=== PATIENT | female | born 1965 | race Caucasian/White ===

== ENCOUNTER → 2017-12-14 13:38 | Outpatient (CLI) | payer OTHER, SELFPAY ==
--- NOTE | 2017-12-14 13:41 | RAD_ITS ---
STUDY: X-RAY CHEST REASON FOR EXAM: Female, 52 years old. Chest pain TECHNIQUE: Frontal and lateral views of the chest COMPARISON: None. FINDINGS: The lungs are clear. There are no pleural effusions. There is no pneumothorax. The heart is normal in size. The visualized osseous structures are within normal limits. RAD/Chest PA and Lateral IMPRESSION: No acute thoracic pathology. Electronically Signed: Juan Nettles, at 16:49 EDT Tel , Service support ,
--- NOTE | 2017-12-14 13:41 | RAD_ITS ---
STUDY: X-RAY - ABDOMEN/PELVIS REASON FOR EXAM: Female, 52 years old. Left-sided kidney stones TECHNIQUE: Two AP supine views of the abdomen and pelvis. COMPARISON: 02/02/2017 FINDINGS: There is an unremarkable bowel gas pattern. There is no demonstrated free abdominal air. The visualized liver, spleen and kidneys are grossly normal in size and morphology. Since the prior study, the left ureteral stent has been removed. There are multiple phleboliths in the pelvis. No definite renal calculus. Normal visualized osseous structures. RAD/Abdomen Single View IMPRESSION: Normal x-ray examination of the abdomen and pelvis. Electronically Signed: Narendra Maynard DO at 14:27 EDT Tel , Service support ,
== END ==
PROVIDERS: Family Provider Family Medicine; PCP Family Medicine; Visit Provider Internal Medicine Cardiovascular Disease
DX: R07.89 Other chest pain (principal); N20.0 Calculus of kidney
CPT/HCPCS: 71046; 74018

== ENCOUNTER 2017-12-24 18:20 | Emergency (ER) | payer OTHER, SELFPAY ==
[2017-12-24 18:21] VITALS: BP 155/65; PULSE 117; RESP 20; TEMP 38.4; O2SAT 95; BMI 48.1
--- NOTE | 2017-12-24 19:10 | RAD_ITS ---
STUDY: X-RAY CHEST REASON FOR EXAM: Female, 52 years old. Short of breath. Cough and fever. TECHNIQUE: Frontal and lateral views of the chest. COMPARISON: 12/14/2017. FINDINGS: The lungs are clear and expanded. There is no demonstrated pleural abnormality. Normal size heart. Normal mediastinum and silvestre. Normal visualized pulmonary arteries. Normal visualized aortic arch and descending thoracic aorta. Normal visualized thoracic spine. Normal visualized ribs, clavicles, and shoulders. There is no demonstrated abnormality of the visualized soft tissue structures of the upper abdomen. RAD/Chest PA and Lateral IMPRESSION: Normal x-ray examination of the chest. Electronically Signed: Dionisio Winter MD at 19:46 EDT , Service support ,
--- NOTE | 2017-12-24 19:11 | ED.VISSUMM ---
- ER Visit Summary Date of Service: 12/24/17 Chief Complaint: Cough, fever History of Present Illness: The patient is a 52 F nonproductive cough for 1 week. Fever for 2 days. T-max 103 orally. Myalgias for 2 days. No chest pains or dyspnea. No wheeze. No urinary symptoms. No flu vaccination this year. States she had influenza-like symptoms prior to Easter was not evaluated. History of hypertension. No tobacco history. Physical Examination: General: Alert and oriented ?3, no acute distress HEENT: Normocephalic, atraumatic. Moist mucosa membranes Neck: supple, nontender. Cardiovascular: Regular rate 96 and rhythm, no murmurs Respiratory: Normal breath sounds, symmetric, no distress Abdomen: Soft, nontender, nondistended Extremities: Nontender, no edema, pulses intact ?4 Neuro: no focal neurological deficits. Test Results: Chest x-ray negative. Influenza negative. Emergency Department Course and Treatment: Patient nontoxic. Heart rate was 96 on my evaluation. No respiratory distress. History concerning for influenza symptoms. Chest x-ray cough was negative. Influenza test returned negative. Discussed with patient her symptoms still could be influenza with a false negative. She has no comorbidities. Discuss treatment would be symptomatic with continued fever control continue oral hydration. Patient understands. Discussed any worsening symptoms to return for reevaluation or follow with her PCP. All questions were answered. Treatment Plan: [] Disposition: Discharge Impression: 1 fever 2. Upper respiratory infection This note was generated with [employer]! dictation software. It may contain incorrect words, spelling, and punctuation that were not noted in review of the chart prior to signing ED Disposition - Plan for ED Patient: Disposition: Home or Assisted Living Chief Complaint: Cold Sx Diagnosis: Fever, Upper respiratory infection Instructions: ED Upper Resp Infec No Abx Tx Referrals: Alfonso Granado DO [Primary Care Provider] - 3-5 Days if not improving
[2017-12-24] MEDS: Acetaminophen 500 MG Tablet 1000 MG PO (19:22)
[2017-12-24 19:23] VITALS: PULSE 100; RESP 18; O2SAT 94
[2017-12-24 20:53] VITALS: PULSE 105; RESP 15; O2SAT 95
== END 2017-12-24 20:53 | disposition home or self-care (01) ==
PROVIDERS: Emergency Provider Emergency Medicine; Family Provider Family Medicine; PCP Family Medicine
DX: R50.9 Fever, unspecified (principal); J06.9 Acute upper respiratory infection, unspecified; I10 Essential (primary) hypertension; Z79.899 Other long term (current) drug therapy; Z87.442 Personal history of urinary calculi
CPT/HCPCS: 71046; 87804; 99282

== ENCOUNTER → 2018-01-08 08:00 | Outpatient (CLI) | payer OTHER, SELFPAY ==
[2018-01-08 17:04] LABS: Absolute Lymphocyte Count 2.03 X10^3/ul (0.83-4.51); Absolute Neutrophil Count 3.1 X10^3/uL (2.0-7.7); Basophil# 0.03 X10^3/uL; Basophil% 0.5 % (0-1); Eosinophil# 0.12 X10^3/uL; Eosinophils% 2.1 % (0-5); Hematocrit 35.1 % (37-47); Hemoglobin 10.5 g/dl (12.0-15.0); Lymphocyte # 2.03 X10^3/ul (4.0); Lymphocyte % 35.3 % (19-41); Mean Corp Hgb Conc 29.9 g/gl (32-36); Mean Corpuscular Hgb 25.1 pg (27.0-32.0); Mean Platelet Vol. 10.3 fl (6.2-12.0); Monocyte# 0.44 X10^3/uL; Monocyte% 7.7 % (0-10); Neutrophil # 3.11 X10^3/uL (2.7-7.7); Neutrophil % 54.1 % (47-70); Platelet Count 474 K/mm3 (150-450); RBC Distribution Width CV 14.8 % (11.6-14.6); RBC Distribution Width SD 44.1 fl (35.1-43.9); Red Blood Count 4.18 M/mm3 (4.2-5.4); White Blood Count 5.8 K/mm3 (4.4-11.0)
[2018-01-08 17:06] LABS: POSITIVE COUNT NO; POSITIVE DIFFERENTIAL NO; POSITIVE MORPHOLOGY NO
[2018-01-08 17:13] LABS: Anion Gap 6 (5-15); BUN 15 mg/dL (7-18); BUN/Creat Ratio 14.9 RATIO (10-20); Calcium,Total 8.7 mg/dL (8.5-10.1); Chloride 107 mmol/L (98-107); Creatinine, Serum 1.01 mg/dL (0.55-1.02); EST Glomerular Filtration Rate 62 mL/min (>60); Est Glom Filt Rate - Afr Amer 75 mL/min (>60); Glucose 91 mg/dL (74-106); Potassium 4.1 mmol/L (3.5-5.1); Sodium Level 141 mmol/L (136-145)
== END ==
PROVIDERS: Family Provider Family Medicine; PCP Family Medicine; Visit Provider Internal Medicine Cardiovascular Disease
DX: R07.89 Other chest pain (principal)
CPT/HCPCS: 36415; 80048; 85025

== ENCOUNTER 2018-01-23 07:04 | Day surgery (SDC) | payer OTHER, SELFPAY ==
--- NOTE | 2018-01-23 | IMM_PTH ---
PATIENT: ESTER OATES LOC: [facility] U#:[id number] AGE/SX: 52/F ROOM: RE01/23/[address]: Dr. Rosi Schwab MD : 1965 BED: DIS: 01/23/2018 SPEC #: [id number] RECD: 01/24/18 12:45 STATUS: DELFINA REQ #: [id number] WILFREDO: 01/23/18 00:[address]: Rosi Schwab DEPT: IMMUNOHISTOCHEMISTRY RECD BY: Pallavi Person ENTERED: 01/24/18 12:45 SP TYPE: IMMUNO OTHR DR: Dr. Alfonso Granado, DO Tissues: A - Stomach, NOS Procedures: H Pylori (initial) PHYSICIAN & INSTITUTION [place] [id number] SPECIMEN INFORMATION: Tissue Source: A ? Antrum biopsy Clinical Info: Black tarry stools Specimen Number: [id number] CPT code: 89718 METHODOLOGY: Deparaffinized sections of prefer/formalin-fixed tissue or PAP/DQ stained slides are incubated with monoclonal/polyclonal antibodies/oligonucleotide probes. Localization is made via biotin free immunoperoxidase method. Appropriate controls are performed and reacted as expected. Results on target cell population are indicated in the following table: RESULTS: ANTIBODY / CLONE RESULT Block A H Pylori (polyclonal) positive These tests were developed and their performance characteristics determined by [facility]. They may not have been cleared or approved by the U.S. Food and Drug Administration. The FDA has determined that such clearance or approval is not necessary. INTERPRETATION: A. Antrum, biopsy: Positive for Helicobacter pylori organisms. SJ:luna 01/24/18
[2018-01-23 07:33] LABS: Internal QC Validated? YES +Cl - CLEAR BKGD; Pregnancy, Urine Negative Negative
[2018-01-23 07:35] VITALS: BP 152/91; PULSE 74; RESP 16; TEMP 36.7; O2SAT 100; BMI 46.8
[2018-01-23 08:51] VITALS: BP 105/53; BP 152/91; PULSE 66; RESP 18; TEMP 36.6; O2SAT 100
[2018-01-23 08:55] VITALS: BP 116/74; BP 152/91; PULSE 64; RESP 18; O2SAT 100
[2018-01-23 09:00] VITALS: BP 117/75; BP 152/91; PULSE 66; RESP 18; O2SAT 100
--- NOTE | 2018-01-23 09:00 | PCM.OPRPT ---
Report of Operation Date of Procedure: 01/23/18 Pre-Operative Diagnosis: Tarry stools Post-Operative Diagnosis: Gastritis/GERD, small distal sigmoid polyps Surgery/Procedure Performed:: EGD with biopsy, colonoscopy with biopsy Type of Anesthesia:: MAC Anesthesiologist: Peter Briones Specimen's removed: 1. Antral biopsy, 2. GE junction, 3. Distal sigmoid colon polyps Estimated Blood Loss (mL): Minimal Description of Procedure: Procedure: EGD w bx After obtaining informed consent, the endoscope was passed under direct visualization. Throughout the procedure, patient's blood pressure, pulse, oxygen saturations were monitored continuously by anesthesia. The endoscope was introduced through the mouth and advanced to the 2nd part of the duodenum. The upper GI endoscopy was accomplished without difficulty. Patient tolerated procedure well. Findings: Mild erythematous mucosa found gastric antrum, as well as change of mucosa at the GE junction. Biopsies were taken with cold biopsy for histology. Estimated blood loss was minimal. The duodenum was normal. Impression: 1. change of mucosa at GE junction. biopsied 2. Erythematous mucosa in the antrum. Biopsied. 3. Normal examined duodenum Recommendations: No obvious source of bleeding seen patient did have some evidence of mild gastritis/GERD will start PPI as well as Carafate ?2 weeks. Procedure: Colonoscopy w bx After reviewing the risks benefits, the patient was deemed in satisfactory condition to undergo procedure. After obtaining informed consent, the scope was passed under direct visualization. Throughout the procedure, the patient's blood pressure pulse and position saturations were monitored continuously anesthesia. The colonoscope was introduced through the anus and advanced to the cecum, identified by the appendiceal orifice, IC valve and transillumination. The colonoscopy was performed without difficulty. The patient tolerated procedure well. Quality of bowel prep was good. Findings: The perianal and digital rectal exam were normal. 2 small distal sigmoid colon polyps removed with cold forceps biopsies. Otherwise the colon (entire examined portion) appeared normal. Retroflexed view of the distal rectum and anal verge was normal and showed no anal or rectal abnormalities Impression: 1. Small distal sigmoid colon polyps ?2 2. The distal rectal and anal verge were normal on retroflexed view. Recommendations: Await biopsies Repeat colonoscopy in 5 years for screening purposes, depending on biopsies - Complications none
[2018-01-23 09:05] VITALS: BP 116/84; BP 152/91; PULSE 78; RESP 18; TEMP 36.3; O2SAT 100
--- NOTE | 2018-01-23 09:23 | EGD_PTH ---
PATIENT: ESTER OATES LOC: [facility] U#:[id number] AGE/SX: 52/F ROOM: RE01/23/[address]: Dr. Rosi Schwab MD : 1965 BED: DIS: 01/23/2018 SPEC #: [id number] RECD: 01/23/18 09:23 STATUS: DELFINA CHANCE #: [id number] WILFREDO: 01/23/18 09:[address]: Rosi Schwab DEPT: SURGICAL PATHOLOGY RECD BY: Dagoberto John ENTERED: 01/23/18 13:26 SP TYPE: EGD BIOPSY CHARLENE DR: Dr. Alfonso Granado DO Tissues: A - Gastric mucous membrane B - Gastric mucous membrane C - Sigmoid colon biopsy Procedures: Surgery Specimen Level IV HEADER OPERATION: EGD and colonoscopy PRE-OP DIAGNOSIS: Black tarry stools TISSUE SUBMITTED: A. Antrum biopsy for histo and H. Pylori, B. GE junction biopsy, C. Distal sigmoid colon polyps biopsy x2 MICROSCOPIC DIAGNOSIS A. Antrum, biopsy: Moderate chronic active gastritis. B. GE junction, biopsy: Fragment of squamous epithelium with minimal chronic inflammation. C. Sigmoid colon polyp, biopsy: Fragments of hyperplastic polyp. SJ:luna 01/24/18 COMMENT A. The results of immunohistochemistry for Helicobacter pylori will be reported separately ([id number]). MICROSCOPIC DESCRIPTION Slides are reviewed. GROSS DESCRIPTION A - Received in fixative is one container labeled with the patient's name and designated antrum biopsy. The specimen consists of multiple irregular fragments of light rodrigez soft tissue that in aggregate measure 0.5 x 0.3 x 0.1 cm. The specimen is totally submitted in one cassette. B - Received in fixative is one container labeled with the patient's name and designated GE junction biopsy. The specimen consists of one irregular fragment of light rodrigez soft tissue that measures 0.5 x 0.5 x 0.1 cm. The specimen is totally submitted in one cassette. C - Received in fixative is one container labeled with the patient's name and designated sigmoid colon polyp biopsy. The specimen consists of multiple irregular fragments of light rodrigez soft tissue that in aggregate measure 1.5 x 0.3 x 0.1 cm. The specimen is totally submitted in one cassette. / RADHA:luna 01/23/18 TC:5 CPT: 46369 x3
[2018-01-23 09:37] VITALS: BP 152/91
== END 2018-01-23 09:38 | disposition home or self-care (01) ==
LOC: EN 07:05 → AC 07:06
PROVIDERS: Family Provider Family Medicine; PCP Family Medicine; Visit Provider Surgery
PROC: 0DJD8ZZ Inspection of Lower Intestinal Tract, Via Natural or Artificial Opening Endoscopic (ICD-10-PCS; CPT 45378; principal; 2018-01-23 07:55)
DX: K29.50 Unspecified chronic gastritis without bleeding (principal); B96.81 Helicobacter pylori [H. pylori] as the cause of diseases classified elsewhere; K63.5 Polyp of colon; E66.9 Obesity, unspecified; I10 Essential (primary) hypertension; Z68.42 Body mass index [BMI] 45.0-49.9, adult; Z87.442 Personal history of urinary calculi; Z79.02 Long term (current) use of antithrombotics/antiplatelets; Z79.82 Long term (current) use of aspirin; Z79.899 Other long term (current) drug therapy
CPT/HCPCS: 43239; 45380; 81025; 88305; 88342; J7120; J2405

== ENCOUNTER → 2018-04-03 19:06 | Outpatient (CLI) | payer OTHER, SELFPAY | PROVIDERS: Family Provider Family Medicine; Visit Provider Surgery | DX: Z87.19 Personal history of other diseases of the digestive system (principal) ==

== ENCOUNTER → 2018-05-16 15:49 | Outpatient (CLI) | payer OTHER, SELFPAY ==
[2018-05-16 17:13] LABS: Absolute Lymphocyte Count 1.66 X10^3/ul (0.83-4.51); Absolute Neutrophil Count 3.2 X10^3/uL (2.0-7.7); Basophil# 0.02 X10^3/uL; Basophil% 0.4 % (0-1); Eosinophil# 0.11 X10^3/uL; Hematocrit 33.3 % (37-47); Hemoglobin 10.2 g/dl (12.0-15.0); Lymphocyte # 1.66 X10^3/ul (4.0); Lymphocyte % 30.9 % (19-41); Mean Corp Hgb Conc 30.6 g/gl (32-36); Mean Corpuscular Hgb 25.1 pg (27.0-32.0); Mean Corpuscular Volume 81.8 fL (81-99); Mean Platelet Vol. 11.5 fl (6.2-12.0); Monocyte# 0.39 X10^3/uL; Monocyte% 7.3 % (0-10); Neutrophil # 3.18 X10^3/uL (2.7-7.7); Neutrophil % 59.2 % (47-70); Platelet Count 238 K/mm3 (150-450); RBC Distribution Width CV 13.9 % (11.6-14.6); RBC Distribution Width SD 40.5 fl (35.1-43.9); Red Blood Count 4.07 M/mm3 (4.2-5.4); White Blood Count 5.4 K/mm3 (4.4-11.0)
[2018-05-16 17:41] LABS: Anion Gap 11 (5-15); BUN 10 mg/dL (7-18); BUN/Creat Ratio 11.4 RATIO (10-20); Calcium,Total 8.3 mg/dL (8.5-10.1); Chloride 107 mmol/L (98-107); Creatinine, Serum 0.88 mg/dL (0.55-1.02); EST Glomerular Filtration Rate 72 mL/min (>60); Est Glom Filt Rate - Afr Amer 87 mL/min (>60); Glucose 108 mg/dL (74-106); Sodium Level 143 mmol/L (136-145)
[2018-05-16 17:47] LABS: POSITIVE COUNT NO; POSITIVE DIFFERENTIAL NO; POSITIVE MORPHOLOGY NO
[2018-05-16 17:53] LABS: Pregnancy, Serum, hCG Quali. NEGATIVE Negative (0-9 Nonpreg)
== END ==
PROVIDERS: Family Provider Family Medicine; PCP Family Medicine; Visit Provider Internal Medicine Cardiovascular Disease
DX: R07.9 Chest pain, unspecified (principal); R07.89 Other chest pain
CPT/HCPCS: 36415; 80048; 84703; 85025

== ENCOUNTER 2018-05-21 08:03 | Day surgery (SDC) | payer OTHER, SELFPAY ==
[2018-05-18 08:47] VITALS: BMI 44.9
== END 2018-05-21 13:00 | disposition home or self-care (01) ==
LOC: CLSP 08:05
PROVIDERS: Family Provider Family Medicine; PCP Family Medicine; Visit Provider Internal Medicine Cardiovascular Disease
DX: R07.89 Other chest pain (principal); R55 Syncope and collapse; I10 Essential (primary) hypertension; E66.9 Obesity, unspecified; Z79.899 Other long term (current) drug therapy; Z87.442 Personal history of urinary calculi
CPT/HCPCS: 93458; 99152; 99153; C1760; J7040; C1769; C1894; Q9967

== ENCOUNTER → 2019-07-20 09:22 | Outpatient (CLI) | payer OTHER, SELFPAY ==
[2019-07-20 10:37] LABS: Anion Gap 7 (5-15); BUN 13 mg/dL (7-18); BUN/Creat Ratio 16.6 RATIO (10-20); Calcium,Total 8.5 mg/dL (8.5-10.1); Chloride 105 mmol/L (98-107); Creatinine, Serum 0.78 mg/dL (0.55-1.02); EST Glomerular Filtration Rate 82 mL/min (>60); Est Glom Filt Rate - Afr Amer 100 mL/min (>60); Glucose 107 mg/dL (74-106); Potassium 4.1 mmol/L (3.5-5.1); Sodium Level 140 mmol/L (136-145); Thyroid Stim Hormone (TSH) 1.62 uIU/mL (0.358-3.74)
== END ==
PROVIDERS: Family Provider Family Medicine; PCP Family Medicine; Referring Provider Preventive Medicine Occupational Medicine; Visit Provider Preventive Medicine Occupational Medicine
DX: I10 Essential (primary) hypertension (principal)
CPT/HCPCS: 36415; 80048; 84443

== ENCOUNTER → 2020-01-09 09:30 | Outpatient (CLI) | payer OTHER, SELFPAY ==
[2018-05-18 08:47] VITALS: BMI 44.9
[2020-01-09 12:13] LABS: Anion Gap 7 (5-15); BUN 14 mg/dL (7-18); Calcium,Total 8.5 mg/dL (8.5-10.1); Chloride 108 mmol/L (98-107); Creatinine, Serum 0.78 mg/dL (0.55-1.02); EST Glomerular Filtration Rate 83 mL/min (>60); Est Glom Filt Rate - Afr Amer 100 mL/min (>60); Glucose 101 mg/dL (74-106); Potassium 3.9 mmol/L (3.5-5.1); Sodium Level 141 mmol/L (136-145)
== END ==
PROVIDERS: PCP Student in an Organized Health Care Education/Training Program; Visit Provider Student in an Organized Health Care Education/Training Program
DX: I10 Essential (primary) hypertension (principal); R73.03 Prediabetes; R94.4 Abnormal results of kidney function studies; E66.01 Morbid (severe) obesity due to excess calories
CPT/HCPCS: 36415; 80048

== ENCOUNTER → 2020-04-23 08:00 | Outpatient (CLI) | payer OTHER, SELFPAY ==
[2018-05-18 08:47] VITALS: BMI 44.9
[2020-04-23 08:50] LABS: Hemoglobin A1c 5.9 % (3.8-5.6)
[2020-04-23 10:07] LABS: AST(SGOT) 15 U/L (15-37); Alanine Aminotransfer ALT/SGPT 27 U/L (13-56); Anion Gap 6 (5-15); BUN 13 mg/dL (7-18); BUN/Creat Ratio 16.1 RATIO (10-20); Calcium,Total 8.4 mg/dL (8.5-10.1); Chloride 105 mmol/L (98-107); EST Glomerular Filtration Rate 79 mL/min (>60); Est Glom Filt Rate - Afr Amer 96 mL/min (>60); Follicle Stimulating Hormone 10.9 mIU/mL; Glucose 110 mg/dL (74-106); Luteinizing Hormone 5.5 mIU/mL; Potassium 3.9 mmol/L (3.5-5.1); Sodium Level 138 mmol/L (136-145); T4 Free Direct 1.03 ng/dL (0.76-1.46); Thyroid Stim Hormone (TSH) 2.54 uIU/mL (0.358-3.74)
[2020-05-02 07:32] LABS: 17-Hydroxyprogesterone 23 ng/dL (.)
== END ==
PROVIDERS: PCP Student in an Organized Health Care Education/Training Program; Referring Provider Internal Medicine Endocrinology, Diabetes & Metabolism; Visit Provider Internal Medicine Endocrinology, Diabetes & Metabolism
DX: R73.03 Prediabetes (principal); R53.82 Chronic fatigue, unspecified; E66.01 Morbid (severe) obesity due to excess calories
CPT/HCPCS: 36415; 80048; 82533; 83001; 83002; 83036; 83498; 84439; 84443; 84450; 84460

== ENCOUNTER → 2020-04-24 | Outpatient (CLI) | payer OTHER, SELFPAY ==
[2018-05-18 08:47] VITALS: BMI 44.9
[2020-04-27 15:06] LABS: 24H Urine Creat. Total Vol. 2.35 L; 24HR. Urine Creatinine 2.03 g/24 HR (0.70-1.90)
[2020-04-28 20:50] LABS: Cortisol, Free 24Ur 52 ug/24 hr (6-42); Cortisol, Urinary Free 22 ug/L (Undefined)
== END | disposition home or self-care (01) ==
LOC: LABSPEC 10:18
PROVIDERS: PCP Student in an Organized Health Care Education/Training Program
DX: R73.03 Prediabetes (principal); E66.01 Morbid (severe) obesity due to excess calories; R53.82 Chronic fatigue, unspecified
CPT/HCPCS: 36415; 82530; 82570

== ENCOUNTER → 2020-07-18 09:37 | Outpatient (CLI) | payer OTHER, SELFPAY ==
[2018-05-18 08:47] VITALS: BMI 44.9
[2020-07-18 11:09] LABS: Hemoglobin A1c 5.6 % (3.8-5.6)
[2020-07-18 11:14] LABS: AST(SGOT) 20 U/L (15-37); Alanine Aminotransfer ALT/SGPT 32 U/L (13-56); Anion Gap 3 (5-15); BUN 17 mg/dL (7-18); BUN/Creat Ratio 20.9 RATIO (10-20); Calcium,Total 8.5 mg/dL (8.5-10.1); Chloride 108 mmol/L (98-107); Creatinine, Serum 0.81 mg/dL (0.55-1.02); EST Glomerular Filtration Rate 78 mL/min (>60); Est Glom Filt Rate - Afr Amer 95 mL/min (>60); Glucose 99 mg/dL (74-106); Potassium 4.1 mmol/L (3.5-5.1); Sodium Level 141 mmol/L (136-145)
== END ==
PROVIDERS: PCP Student in an Organized Health Care Education/Training Program
DX: R73.03 Prediabetes (principal)
CPT/HCPCS: 36415; 80048; 83036; 84450; 84460

== ENCOUNTER → 2020-08-28 20:15 | Outpatient (CLI) | payer OTHER, SELFPAY ==
[2018-05-18 08:47] VITALS: BMI 44.9
== END ==
PROVIDERS: PCP Student in an Organized Health Care Education/Training Program; Referring Provider Internal Medicine Endocrinology, Diabetes & Metabolism; Visit Provider Internal Medicine Endocrinology, Diabetes & Metabolism
DX: G47.11 Idiopathic hypersomnia with long sleep time (principal); R06.83 Snoring
CPT/HCPCS: 95810

== ENCOUNTER → 2020-10-20 07:52 | Outpatient (CLI) | payer OTHER, SELFPAY ==
[2020-10-20 08:21] LABS: AST(SGOT) 22 U/L (15-37); Alanine Aminotransfer ALT/SGPT 40 U/L (13-56); Anion Gap 2 (5-15); BUN 18 mg/dL (7-18); BUN/Creat Ratio 21.4 RATIO (10-20); Chloride 108 mmol/L (98-107); Creatinine, Serum 0.84 mg/dL (0.55-1.02); EST Glomerular Filtration Rate 75 mL/min (>60); Est Glom Filt Rate - Afr Amer 91 mL/min (>60); Glucose 108 mg/dL (74-106); Potassium 4.3 mmol/L (3.5-5.1); Sodium Level 140 mmol/L (136-145)
[2020-10-20 08:27] LABS: Hemoglobin A1c 5.5 % (3.8-5.6)
== END ==
PROVIDERS: PCP Student in an Organized Health Care Education/Training Program; Referring Provider Internal Medicine Endocrinology, Diabetes & Metabolism; Visit Provider Internal Medicine Endocrinology, Diabetes & Metabolism
DX: R73.03 Prediabetes (principal); R63.5 Abnormal weight gain
CPT/HCPCS: 36415; 80048; 83036; 84450; 84460

== ENCOUNTER → 2021-03-22 07:45 | Outpatient (CLI) | payer OTHER, SELFPAY ==
[2021-02-17 06:00] VITALS: BMI 44.0
[2021-03-22 08:37] LABS: AST(SGOT) 24 U/L (15-37); Alanine Aminotransfer ALT/SGPT 28 U/L (13-56); Anion Gap 5 (5-15); BUN 12 mg/dL (7-18); BUN/Creat Ratio 15.1 RATIO (10-20); Calcium,Total 8.6 mg/dL (8.5-10.1); Chloride 105 mmol/L (98-107); EST Glomerular Filtration Rate 80 mL/min (>60); Est Glom Filt Rate - Afr Amer 97 mL/min (>60); Glucose 109 mg/dL (74-106); Hemoglobin A1c 5.4 % (3.8-5.6); Sodium Level 138 mmol/L (136-145)
== END ==
PROVIDERS: PCP Student in an Organized Health Care Education/Training Program; Referring Provider Internal Medicine Endocrinology, Diabetes & Metabolism; Visit Provider Internal Medicine Endocrinology, Diabetes & Metabolism
DX: R73.03 Prediabetes (principal); R63.5 Abnormal weight gain
CPT/HCPCS: 36415; 80048; 83036; 84450; 84460

== ENCOUNTER → 2021-08-03 07:58 | Outpatient (CLI) | payer OTHER, SELFPAY ==
[2021-08-03 09:05] LABS: AST(SGOT) 19 U/L (15-37); Alanine Aminotransfer ALT/SGPT 31 U/L (13-56); Anion Gap 5 (5-15); BUN 20 mg/dL (7-18); BUN/Creat Ratio 25.6 RATIO (10-20); Calcium,Total 8.7 mg/dL (8.5-10.1); Chloride 105 mmol/L (98-107); Creatinine, Serum 0.78 mg/dL (0.55-1.02); EST Glomerular Filtration Rate 82 mL/min (>60); Est Glom Filt Rate - Afr Amer 99 mL/min (>60); Glucose 111 mg/dL (74-106); Potassium 3.7 mmol/L (3.5-5.1); Sodium Level 139 mmol/L (136-145)
[2021-08-03 09:17] LABS: Hemoglobin A1c 5.7 % (3.8-5.6)
== END ==
PROVIDERS: PCP Student in an Organized Health Care Education/Training Program
DX: R73.03 Prediabetes (principal); R63.5 Abnormal weight gain
CPT/HCPCS: 36415; 80048; 83036; 84450; 84460

== ENCOUNTER 2021-12-02 15:37 | Outpatient (CLI) | payer OTHER, SELFPAY ==
[2021-12-06 22:07] LABS: Thyroid Peroxidase AB 17 IU/mL (0-34)
[2021-12-07 09:39] LABS: Thyroglobulin Antibody < 1.0 IU/mL (0.0-0.9)
== END 2021-12-02 23:59 | disposition home or self-care (01) ==
LOC: LAB 15:39
PROVIDERS: PCP Student in an Organized Health Care Education/Training Program; Referring Provider Student in an Organized Health Care Education/Training Program; Visit Provider Student in an Organized Health Care Education/Training Program
DX: E04.9 Nontoxic goiter, unspecified (principal)
CPT/HCPCS: 36415; 86376; 86800

== ENCOUNTER → 2022-05-19 | Outpatient (CLI) | payer OTHER, SELFPAY ==
[2022-05-19 08:45] LABS: AST(SGOT) 16 U/L (15-37); Alanine Aminotransfer ALT/SGPT 30 U/L (13-56); Anion Gap 6 (5-15); BUN 16 mg/dL (7-18); BUN/Creat Ratio 20.6 RATIO (10-20); Calcium,Total 8.4 mg/dL (8.5-10.1); Chloride 107 mmol/L (98-107); Creatinine, Serum 0.78 mg/dL (0.55-1.02); EST Glomerular Filtration Rate 82 mL/min (>60); Est Glom Filt Rate - Afr Amer 100 mL/min (>60); Glucose 113 mg/dL (74-106); Potassium 3.8 mmol/L (3.5-5.1); Sodium Level 141 mmol/L (136-145)
== END | disposition home or self-care (01) ==
LOC: LAB 07:04
PROVIDERS: PCP Student in an Organized Health Care Education/Training Program
DX: R73.03 Prediabetes (principal); R63.5 Abnormal weight gain
CPT/HCPCS: 36415; 80048; 83036; 84450; 84460

== ENCOUNTER 2022-08-31 08:05 | Day surgery (SDC) | payer OTHER, SELFPAY ==
[2022-08-31] VITALS (7 sets, daily range): BP systolic 105–150; BP diastolic 61–75; PULSE 64–77; RESP 16–18; TEMP 36.2–36.5; O2SAT 95–98; BMI 46.6
[2022-08-31 08:44] LABS: Internal QC Validated? YES +Cl - CLEAR BKGD; Pregnancy, Urine Negative Negative
--- NOTE | 2022-08-31 08:44 | PCM.HP.BLA ---
History and Physical Date of Admission: 08/31/22 ESTER OATES, is a 56 F who presents to the office today for dysphagia.? For about 4 years she has noted dysphagia in the upper part of the esophagus, especially when eating raw vegetables such as carrots and broccoli.? She had an esophagram on 03/07/2022 at [facility]; it showed small to moderate hiatal hernia, acid reflux extending to the mid esophagus, and tertiary contractions of esophageal dysmotility.? She has never had an episode where food became lodged in the esophagus, no emergency room visits for this problem.? She does not get any chest pains or obvious spasms of the esophagus.? She takes omeprazole 20 mg daily, she started that in 2018 after having upper endoscopy and being diagnosed with H. pylori.? As long as she takes omeprazole she does not have heartburn.? If she misses a dose of omeprazole then she does have significant acid reflux. Dr. Schwab did EGD and colonoscopy on 01/23/2018, biopsies showed gastritis and H. pylori, and there was one hyperplastic polyp in the sigmoid colon. Denies nausea, vomiting, early satiety.? No issues with the bowels.? Denies diarrhea, constipation, melena, hematochezia. ROS Const Constitutional: No fatigue ENT ENT: Positive for difficulty swallowing Gastro GI: Positive for heartburn and difficulty swallowing; No abdominal pain, belching, bloating, change in bowel habits, change in stool character, coffee ground emesis, constipation, cramping, diarrhea, feeling full early, excessive flatus, incontinent of stools, Vomiting blood/hematemesis, Blood in stool, loose stools, Black,tarry stools, nausea/dyspepsia, pain with swallowing, vomiting or other Musc Musculoskeletal: Positive for joint pain, back pain, numbness, stiffness and Arthritis Skin Skin: No yellowing of the eye or itchy eyes Neuro Neurology: Positive for numbness Psych Psychiatric: No anxiety and No depression Endo Endocrine: No fatigue Aller/Imm Allergy/Immunologic: No itchy eyes Crow/Lymp Hematologic/Lymphatic: No easy bleeding or easy bruising Exam Const General: cooperative and comfortable Orientation: alert, awake and oriented x3 HENMT Head: normal to inspection Eyes General: appearance normal, both eyes and all related structures Resp Effort & Inspection: normal respiratory effort GI Inspection: obesity Quality Reporting Tobacco Screening ([facility]) Smoking Status: Never smoker Assessment and Plan Assessment and Plan (1) Dysphagia: ?Status:?Acute ?Plan: 56-year-old female with dysphagia.? There is evidence of esophageal dysmotility on esophagram.? She has a known hiatal hernia and acid reflux which is symptomatic if she does not take omeprazole 20 mg daily.? We will schedule her for EGD to evaluate for esophageal dysmotility, stenosis, Cee's, gastritis, H. pylori, peptic ulcer disease.? We will do Benitez pH testing at the same time; we will have her tried to go off PPI several days before although she does notice significant symptoms with even 1 day without PPI.? We will also schedule her for esophageal manometry.? Follow-up appointment after testing to review results and discuss treatment plan. I have examined the patient and the H&P has been reviewed. There are no clinical changes since date of exam.
[2022-08-31 08:50] LABS: Bedside Glucose 118 mg/dL (74-106)
[2022-08-31] MEDS: Lactated Ringers 1,000 ML 15 ML IV (08:52)
--- NOTE | 2022-08-31 09:00 | EGD_PTH ---
PATIENT: ESTER OATES LOC: [facility] U#:[id number] AGE/SX: 56/F ROOM: RE08/31/[address]: Dr. Oracio Edmondson DO : 1965 BED: DIS: 08/31/2022 SPEC #: [id number] RECD: 08/31/22 10:07 STATUS: DELFINA CHANCE #: [id number] WILFREDO: 08/31/22 09:[address]: Oracio Edmondson DEPT: SURGICAL PATHOLOGY RECD BY: Aure Bustamante ENTERED: 08/31/22 11:00 SP TYPE: EGD BIOPSY CHARLENE DR: Dr. Talha Oconnor DO Tissues: A - Duodenum, NOS B - Esophagus, NOS Procedures: Special Stain Group II Surgery Specimen Level IV Alcian Blue/PAS (control) HEADER OPERATION[place] [place] probe PRE-OP DIAGNOSIS: Dysphagia TISSUE SUBMITTED: A ? Duodenum biopsy, B ? Distal esophagus biopsy MICROSCOPIC DIAGNOSIS A. 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 B. Distal esophagus, biopsy: A fragment of gastroesophageal mucosa with chronic inflammation. Intestinal metaplasia (goblet cell metaplasia) not identified. See comment. RADHA:luna 09/01/2022 COMMENT B. Alcian blue/PAS stain with matched control is used in the evaluation of the specimen. MICROSCOPIC DESCRIPTION Slides are reviewed. GROSS DESCRIPTION A - Received in fixative is one container labeled with the patient's name and designated duodenum biopsy. The specimen consists of two irregular fragments of light rodrigez soft tissue that in aggregate measure 0.6 x 0.3 x 0.1 cm. The specimen is totally submitted in one cassette. B - Received in fixative is one container labeled with the patient's name and designated distal esophageal biopsy. The specimen consists of one irregular fragment of light rodrigez soft tissue that measures 0.5 x 0.3 x 0.1 cm. The specimen is totally submitted in one cassette. / RADHA:luna 08/31/2022 TC:3 CPT: 43226 x2, 05288
--- NOTE | 2022-08-31 09:21 | OP.EGD_ITS ---
Patient Name: Claudia Echeverria Procedure Date: 08/31/2022 8:47 AM Date of : 1965 Age: 56 Procedure: Upper GI endoscopy Indications: Suspected esophageal reflux, Chronic cough Providers: Oracio Edmondson DO Referring MD: Oracio Edmondson DO Medicines: Monitored Anesthesia Care Patient Profile: This is a 56 year old female. Refer to note in patient chart for documentation of history and physical. Patient has symptoms of chronic cough, chronic heartburn and chronic nausea. Complications: No immediate complications. Procedure: Pre-Anesthesia Assessment: - Prior to the procedure, a History and Physical was performed, and patient medications and allergies were reviewed. The patient is competent. The risks and benefits of the procedure and the sedation options and risks were discussed with the patient. All questions were answered and informed consent was obtained. Patient identification and proposed procedure were verified by the physician in the pre-procedure area. Mental Status Examination: alert and oriented. Airway Examination: normal oropharyngeal airway and neck mobility. Respiratory Examination: clear to auscultation. CV Examination: normal. Prophylactic Antibiotics: The patient does not require prophylactic antibiotics. Prior Anticoagulants: The patient has taken no previous anticoagulant or antiplatelet agents. ASA Grade Assessment: II - A patient with mild systemic disease. After reviewing the risks and benefits, the patient was deemed in satisfactory condition to undergo the procedure. The anesthesia plan was to use moderate sedation / analgesia (conscious sedation). Immediately prior to administration of medications, the patient was re-assessed for adequacy to receive sedatives. The heart rate, respiratory rate, oxygen saturations, blood pressure, adequacy of pulmonary ventilation, and response to care were monitored throughout the procedure. The physical status of the patient was re-assessed after the procedure. After obtaining informed consent, the endoscope was passed under direct vision. Throughout the procedure, the patient's blood pressure, pulse, and oxygen saturations were monitored continuously. The gastroscope was introduced through the mouth, and advanced to the second part of duodenum. The upper GI endoscopy was accomplished without difficulty. The patient tolerated the procedure well. Scope In: 9:06:07 AM Scope Out: 9:13:34 AM Total Procedure Duration Time 0 hours 7 minutes 27 seconds Findings: The Z-line was irregular and was found 34 cm from the incisors. Biopsies were taken with a cold forceps for histology. Verification of patient identification for the specimen was done. The BARRETT capsule with delivery system was introduced through the mouth and advanced into the esophagus, such that the BARRETT pH capsule was positioned 40 cm from the incisors, which was 6 cm proximal to the GE junction. Suction was applied to the well of the BARRETT pH capsule to suck in the adjacent mucosa of the esophagus using the external vacuum pump set at a minimum vacuum pressure of 550 mmHg for 30 seconds. The BARRETT pH capsule was then deployed by depressing the plunger on top of the handle to advance the locking pin into the mucosa, thereby attaching the capsule to the esophagus. The plunger was then rotated a quarter turn clockwise to release the capsule from the delivery system. The delivery system was then withdrawn. Endoscopy was utilized for probe placement and diagnostic evaluation. The entire examined stomach was normal. A small hiatal hernia was present. Patchy mild inflammation characterized by erythema was found in the duodenal bulb. Impression: - Z-line irregular, 34 cm from the incisors. Biopsied. - Normal stomach. - Small hiatal hernia. - Duodenitis. - The BARRETT pH capsule was positioned 40 cm from the incisors, which was 6 cm proximal to the GE junction. Recommendation: - Discharge patient to home. - Resume previous diet. - Continue present medications. - Await pathology results. Procedure Code(s): --- Professional --- 93495, Esophagogastroduodenoscopy, flexible, transoral; with biopsy, single or multiple CPT copyright 2017 [employer]. All rights reserved. The codes documented in this report are preliminary and upon bar supervisor review may be revised to meet current compliance requirements. Oracio Edmondson DO 08/31/2022 9:20:55 AM This report has been signed electronically. Number of Addenda: 0 Note Initiated On: 08/31/2022 8:47 AM
--- NOTE | 2022-08-31 09:21 | OP.CCLET_ITS ---
08/31/2022 Talha Oconnor Do Re : Upper GI endoscopy procedure for Claudia Echeverria Dear Anastasia This procedure was performed on Wednesday, August 31, 2022. My impressions and recommendations are as follows: Impressions : - Z-line irregular, 34 cm from the incisors. Biopsied. - Normal stomach. - Small hiatal hernia. - Duodenitis. - The BARRETT pH capsule was positioned 40 cm from the incisors, which was 6 cm proximal to the GE junction. Recommendations : - Discharge patient to home. - Resume previous diet. - Continue present medications. - Await pathology results. My findings are described in the full procedure note, which is enclosed. If I can be of further assistance, please feel free to contact me at . Sincerely, Oracio Edmondson, 08/31/2022 9:20:55 AM This report has been signed electronically.
--- NOTE | 2022-09-08 15:17 | PCM.HP.BLA ---
History and Physical Date of Admission: 08/31/22 Study: 48-hour?Benitez?pH capsule was placed on esophagus during EGD on 08/31/22 ? Indications for?Benitez?pH Study: dysphagia, acid reflux that requires PPI ? Study Findings?? ? 48-hour overview: acid exposure occurred while upright, longest reflux 18 minutes ? Using data from the worst of the two days, acid exposure time is 7.3%.?Percent acid exposure time?is the single parameter which has been shown to best correlate with endoscopic damage. Normal is <4.4% on the worst day, therefore this result is abnormal.? ? The?DeMeester Score?(normal is <14.72) on the worst of the two days is 18.2 which is abnormal.?The DeMeester Score is a method of adding weights to six common pH measurement parameters, and presenting esophageal acid exposure data as a cumulative score.? ? Symptom Index (SI)?>50% is significant (it indicates that >50% of the observed symptoms were associated with reflux).? In this study, the SI is 55% which?is significant. ? Symptom Association Probability (SAP)?helps to determine if there is a true correlation between symptoms and reflux. SAP >95% indicates a likely correlation.? In this study, the SAP is 99.9% which?does indicate a true correlation.? ? Interpretation Abnormal Charges/Coding Procedures Gastroenterology CF Procedures [id number]: 76929 Gastroesophageal reflux test
== END 2022-08-31 10:16 | disposition home or self-care (01) ==
LOC: EN 08:07 → AC 08:08
PROVIDERS: Anesthesiology; PCP Student in an Organized Health Care Education/Training Program; Referring Provider Student in an Organized Health Care Education/Training Program; Visit Provider Internal Medicine Gastroenterology
PROC: 0DJ08ZZ Inspection of Upper Intestinal Tract, Via Natural or Artificial Opening Endoscopic (ICD-10-PCS; CPT 43235; principal; 2022-08-31 08:55)
DX: K21.00 Gastro-esophageal reflux disease with esophagitis, without bleeding (principal); R13.10 Dysphagia, unspecified; K44.9 Diaphragmatic hernia without obstruction or gangrene; K29.80 Duodenitis without bleeding; Z20.822 Contact with and (suspected) exposure to COVID-19; Z79.899 Other long term (current) drug therapy
CPT/HCPCS: 43235; 81025; 82962; 87426; 88305; 88313; C9803; J7120; J2405

== ENCOUNTER → 2022-09-16 | Day surgery (SDC) | payer OTHER, SELFPAY ==
[2022-09-16] MEDS: Lidocaine Jelly 2% 20 ML Syringe (URO-JET) 1 APPLIC (08:10)
[2022-09-16 08:19] VITALS: PULSE 74; TEMP 36.3; O2SAT 100
[2022-09-16 08:20] VITALS: BP 142/95; RESP 15
== END | disposition home or self-care (01) ==
LOC: EN 07:58
PROVIDERS: PCP Student in an Organized Health Care Education/Training Program; Referring Provider Student in an Organized Health Care Education/Training Program; Visit Provider Internal Medicine Gastroenterology
PROC: F00ZJWZ Instrumental Swallowing and Oral Function Assessment using Swallowing Equipment (ICD-10-PCS; CPT 43235; principal; 2022-09-16 07:55)
DX: R13.10 Dysphagia, unspecified (principal)
CPT/HCPCS: 91010

== ENCOUNTER → 2022-09-27 | Outpatient (CLI) | payer OTHER, SELFPAY | END | disposition home or self-care (01) | LOC: SL 10:21 | PROVIDERS: PCP Student in an Organized Health Care Education/Training Program; Referring Provider Internal Medicine Critical Care Medicine; Visit Provider Internal Medicine Critical Care Medicine | DX: G47.33 Obstructive sleep apnea (adult) (pediatric) (principal) | CPT/HCPCS: 95806 ==

== ENCOUNTER → 2022-10-10 | Outpatient (CLI) | payer OTHER, SELFPAY ==
--- NOTE | 2022-10-10 13:50 | RAD_ITS ---
EXAM: XR ABDOMEN, 1 VIEW CLINICAL INDICATION: CALCULUS OF KIDNEY TECHNIQUE: Frontal supine view of the abdomen/pelvis. This report was created using [employer] report generation technology. COMPARISON: December 24, 2017. FINDINGS: LIMITATIONS: Limits assessment for free intraperitoneal air. LOWER THORAX: No acute pathology. GASTROINTESTINAL TRACT: Limited assessment for urolithiasis due to overlying bowel gas. Stool and gas throughout the colon. No bowel obstruction. ORGANS: Unremarkable as visualized. No organomegaly. No abnormal calcifications. BONES/JOINTS: No suspicious lytic or sclerotic lesions of bone. Mild degenerative changes of the spine. SOFT TISSUES: No acute pathology. VASCULATURE: Multiple phleboliths in the pelvis. RAD/Abdomen Single View IMPRESSION: No acute disease or bowel obstruction. Limited assessment for urolithiasis due to overlying bowel gas. If still concerned, recommend CT. Electronically Signed: Chong Vines MD at 22:35 EST Reading Location ID and State: [facility] / [place] Tel , Service support ,
== END | disposition home or self-care (01) ==
LOC: RAD 13:41
PROVIDERS: PCP Student in an Organized Health Care Education/Training Program; Referring Provider Urology; Visit Provider Urology
DX: N20.0 Calculus of kidney (principal)
CPT/HCPCS: 74018

== ENCOUNTER → 2022-11-09 | Outpatient (CLI) | payer OTHER, SELFPAY ==
[2022-11-09 08:23] LABS: AST(SGOT) 17 U/L (15-37); Alanine Aminotransfer ALT/SGPT 24 U/L (13-56); Anion Gap 5 (5-15); BUN 7 mg/dL (7-18); BUN/Creat Ratio 8.4 RATIO (10-20); Chloride 105 mmol/L (98-107); Creatinine, Serum 0.83 mg/dL (0.55-1.02); EST Glomerular Filtration Rate 76 mL/min (>60); Est Glom Filt Rate - Afr Amer 92 mL/min (>60); Glucose 122 mg/dL (74-106); Potassium 3.5 mmol/L (3.5-5.1); Sodium Level 140 mmol/L (136-145)
[2022-11-09 08:49] LABS: Hemoglobin A1c 5.7 % (3.8-5.6)
== END | disposition home or self-care (01) ==
LOC: LAB 07:07
PROVIDERS: PCP Student in an Organized Health Care Education/Training Program
DX: R73.03 Prediabetes (principal); R63.5 Abnormal weight gain
CPT/HCPCS: 36415; 80048; 83036; 84450; 84460

== ENCOUNTER → 2022-11-28 | Outpatient (CLI) | payer OTHER, SELFPAY ==
[2022-11-28 09:03] LABS: AST(SGOT) 23 U/L (15-37); Alanine Aminotransfer ALT/SGPT 30 U/L (13-56); Anion Gap 6 (5-15); BUN 16 mg/dL (7-18); BUN/Creat Ratio 19.4 RATIO (10-20); Calcium,Total 9.3 mg/dL (8.5-10.1); Chloride 106 mmol/L (98-107); Creatinine, Serum 0.82 mg/dL (0.55-1.02); EST Glomerular Filtration Rate 77 mL/min (>60); Est Glom Filt Rate - Afr Amer 93 mL/min (>60); Glucose 114 mg/dL (74-106); Potassium 3.9 mmol/L (3.5-5.1); Sodium Level 141 mmol/L (136-145)
== END | disposition home or self-care (01) ==
LOC: LAB 07:20
PROVIDERS: PCP Student in an Organized Health Care Education/Training Program
DX: R73.03 Prediabetes (principal); R63.5 Abnormal weight gain
CPT/HCPCS: 36415; 80048; 83036; 84450; 84460

== ENCOUNTER 2023-03-15 05:34 | Day surgery (SDC) | payer OTHER, SELFPAY ==
[2023-03-15] VITALS (7 sets, daily range): BP systolic 113–157; BP diastolic 69–108; PULSE 72–90; RESP 16–18; TEMP 36.2–37.1; O2SAT 96–98; BMI 49.2
[2023-03-15] MEDS: Lactated Ringers 1,000 ML 15 ML IV (06:05)
[2023-03-15] MEDS: 0.9% Normal Saline (Pres. free 10 ML Vial (06:17)
[2023-03-15] MEDS: 0.9% Saline Lock 10 ML Syringe IV (06:17)
--- NOTE | 2023-03-15 06:33 | HP.PCM_ITS ---
History and Physical Date of Admission: 03/15/23 57 F who presents to the office today for f/u duodenitis, dysphagia Postprandial epigastric pain (and sinusitis) resolved with doxycycline. Esophageal manometry: EGJ outflow obstruction For about 4 years she has noted dysphagia in the upper part of the esophagus, especially when eating raw vegetables such as carrots and broccoli.? She had an esophagram on 03/07/2022 at [facility]; it showed small to moderate hiatal hernia, acid reflux extending to the mid esophagus, and tertiary contractions of esophageal dysmotility.? She has never had an episode where food became lodged in the esophagus, no emergency room visits for this problem.? She does not get any chest pains or obvious spasms of the esophagus.? She takes omeprazole 20 mg daily, she started that in 2018 after having upper endoscopy and being diagnosed with H. pylori.? As long as she takes omeprazole she does not have heartburn.? If she misses a dose of omeprazole then she does have significant acid reflux. Denies nausea, vomiting.?Denies diarrhea, constipation, melena, hematochezia. 08/2022 EGD showed Z-line irregular, small hiatal hernia, normal stomach, duodenitis; biopsies negative for Cee's, positive for Ksenia gland hyperplasia. Benitez pH test is abnormal, confirms acid reflux, and correlates with symptoms, she stopped PPI 3 days prior. Her is currently hospitalized at [facility] with meningitis, he is a kidney transplant pt for polycystic kidneys Exam Const General: cooperative and comfortable Orientation: alert, awake and oriented x3 Quality Reporting Tobacco Screening ([facility] 138) Smoking Status: Never smoker Assessment and Plan Assessment and Plan (1) Esophageal dysmotility: Status: Chronic Plan: EGJ outflow obstruction per manometry Discussed treatment options including calcium channel caterina, botulinum toxin She elects for botulinum toxin, will schedule EGD (2) GERD (gastroesophageal reflux disease): Status: Chronic Plan: Continue omeprazole Medications: Discontinued doxycycline hyclate Discontinued Reason: Order Completed 100 mg PO BID 28 caps 0RF I have examined the patient and the H&P has been reviewed. There are no clinical changes since date of exam.
[2023-03-15] MEDS: Botulinum Toxin A 100 Units Vial IJ (06:47)
--- NOTE | 2023-03-15 06:53 | OP.CCLET_ITS ---
03/15/2023 Talha Oconnor Do Re : Upper GI endoscopy procedure for Claudia Echeverria Dear Anastasia This procedure was performed on Wednesday, March 15, 2023. My impressions and recommendations are as follows: Impressions : - Abnormal esophageal motility. Injected with botulinum toxin. - Normal stomach. - Normal duodenal bulb. - No specimens collected. Recommendations : - Discharge patient to home. - Resume previous diet. - Continue present medications. My findings are described in the full procedure note, which is enclosed. If I can be of further assistance, please feel free to contact me at . Sincerely, Oracio Edmondson, 03/15/2023 6:51:59 AM This report has been signed electronically.
--- NOTE | 2023-03-15 06:53 | OP.EGD_ITS ---
Patient Name: Claudia Echeverria Procedure Date: 03/15/2023 6:15 AM Date of : 1965 Age: 57 Procedure: Upper GI endoscopy Indications: Dysphagia Providers: Oracio Edmondson DO Medicines: Monitored Anesthesia Care Patient Profile: This is a 57 year old female. Refer to note in patient chart for documentation of history and physical. Patient has symptoms of chronic dysphagia and dysphagia with both liquids and solids. Complications: No immediate complications. Procedure: Pre-Anesthesia Assessment: - Prior to the procedure, a History and Physical was performed, and patient medications and allergies were reviewed. The risks and benefits of the procedure and the sedation options and risks were discussed with the patient. All questions were answered and informed consent was obtained. Patient identification and proposed procedure were verified by the physician. Mental Status Examination: normal. Respiratory Examination: clear to auscultation. Prophylactic Antibiotics: The patient does not require prophylactic antibiotics. Prior Anticoagulants: The patient has taken no previous anticoagulant or antiplatelet agents. After reviewing the risks and benefits, the patient was deemed in satisfactory condition to undergo the procedure. The anesthesia plan was to use monitored anesthesia care (MAC). Immediately prior to administration of medications, the patient was re-assessed for adequacy to receive sedatives. The heart rate, respiratory rate, oxygen saturations, blood pressure, adequacy of pulmonary ventilation, and response to care were monitored throughout the procedure. The physical status of the patient was re-assessed after the procedure. After obtaining informed consent, the endoscope was passed under direct vision. Throughout the procedure, the patient's blood pressure, pulse, and oxygen saturations were monitored continuously. The gastroscope was introduced through the mouth, and advanced to the second part of duodenum. The upper GI endoscopy was accomplished without difficulty. The patient tolerated the procedure well. Scope In: 6:39:31 AM Scope Out: 6:45:52 AM Total Procedure Duration Time 0 hours 6 minutes 21 seconds Findings: Abnormal motility was noted in the lower third of the esophagus. The cricopharyngeus was normal. There is spasticity of the esophageal body. The distal esophagus/lower esophageal sphincter is spastic, but gives up passage to the endoscope. Tertiary peristaltic waves are noted. Area was successfully injected with 100 units botulinum toxin. The entire examined stomach was normal. The duodenal bulb was normal. Impression: - Abnormal esophageal motility. Injected with botulinum toxin. - Normal stomach. - Normal duodenal bulb. - No specimens collected. Recommendation: - Discharge patient to home. - Resume previous diet. - Continue present medications. Procedure Code(s): --- Professional --- 59661, Esophagogastroduodenoscopy, flexible, transoral; with directed submucosal injection(s), any substance CPT copyright 2017 [employer]. All rights reserved. The codes documented in this report are preliminary and upon building custodian review may be revised to meet current compliance requirements. Oracio Edmondson DO 03/15/2023 6:51:59 AM This report has been signed electronically. Number of Addenda: 0 Note Initiated On: 03/15/2023 6:15 AM
== END 2023-03-15 07:42 | disposition home or self-care (01) ==
LOC: EN 05:35 → AC 05:36
PROVIDERS: PCP Student in an Organized Health Care Education/Training Program; Referring Provider Student in an Organized Health Care Education/Training Program; Visit Provider Internal Medicine Gastroenterology
PROC: 0DJ08ZZ Inspection of Upper Intestinal Tract, Via Natural or Artificial Opening Endoscopic (ICD-10-PCS; CPT 43235; principal; 2023-03-15 06:25)
DX: K22.4 Dyskinesia of esophagus (principal); K29.80 Duodenitis without bleeding; Z87.19 Personal history of other diseases of the digestive system; K21.9 Gastro-esophageal reflux disease without esophagitis; Z79.899 Other long term (current) drug therapy; I10 Essential (primary) hypertension; Z79.84 Long term (current) use of oral hypoglycemic drugs; E66.9 Obesity, unspecified
CPT/HCPCS: 43236; J7120; A4216; J0585; J2405; J3490

== ENCOUNTER 2023-06-23 16:42 | Emergency (ER) | payer OTHER, SELFPAY ==
[2023-06-23 16:44] VITALS: BP 157/81; PULSE 81; RESP 16; TEMP 36.2; O2SAT 98; BMI 49.3
--- NOTE | 2023-06-23 17:09 | CT_ITS ---
INDICATION: headache EXAMINATION: CT BRAIN - CT Head or Brain W/O Contrast Injection TECHNIQUE: Multiple axial images were obtained of the head without intravenous contrast. A radiation dose optimization technique was used for this scan. IV Contrast dosage and agent: None. RADIATION DOSAGE (If Supplied By Facility): CTDIvol = ( 44.99 ) mGy, DLP = ( 745.49 ) mGycm COMPARISON: No relevant prior comparison study available FINDINGS: BRAIN PARENCHYMA: No intra- or extra-axial hemorrhage. No evidence of acute infarct. No intracranial mass or mass effect. There is preservation of the wong/white matter interface. Posterior fossa structures are unremarkable. No parenchymal abnormality. CSF SPACES: No cerebral volume loss. No hydrocephalus. Basal cisterns are patent. CALVARIUM, SKULL BASE, PARANASAL SINUSES AND MASTOID AIR CELLS: The mastoid air cells and visualized paranasal sinuses are well aerated. The calvarium is intact. No discrete lytic or blastic abnormalities. ORBITS: Both globes, extraocular muscles, optic nerves and retrobulbar fat appear unremarkable. CT/Brain/Head without Contrast IMPRESSION: No acute intracranial finding. Electronically Signed: Desean Xiong MD at 17:47 EDT ,
--- NOTE | 2023-06-23 17:40 | EX.ED.DYSGE1 ---
HPI History of Present Illness Chief Complaint: Hypertension Informant: patient Narrative Narrative: Presents to the ED after being referred after calling PCP office. History of hypertension states currently losartan 25 mg. States 4 years ago was on 50 mg however with exercise was able to get it down. Last seen her PCP blood pressure normal 110s over 70s. She states since Monday she had increasing migraine headache with vomiting at that time. Her blood pressure systolic 150s at that time. Monday her symptoms were improving. She took Tylenol at that time. States since then has had mild headache since then no vomiting. Her blood pressure has been around 150. She is not taking NSAIDs. Today blood pressure systolic 180s over 110sx2. She did take her losartan. Called her PCP office was referred here. Denies chest pains or abdominal pains. [facility] Medical History Allergic rhinitis Aortic valve sclerosis Arthritis BMI 45.0-49.9, adult Cardiology follow-up encounter Difficulty swallowing History of echocardiogram History of edema History of hiatal hernia History of stress test History of ulceration Hyperchloremia Hyperglycemia Hypertension Hypertension Kidney stones Leg cramps Leukopenia Low iron Lymphedema Menorrhagia Migraine headache Non-smoker Obesity Polycystic ovary syndrome Pre-diabetes Sleep apnea SVT (supraventricular tachycardia) Syncope Thyroid enlargement Wears contact lenses Home Medications omeprazole 20 mg capsule,delayed release 20 mg PO DAILY #30 caps 01/23/18 [Rx Last Taken 03/15/23] metformin 500 mg tablet 500 mg PO TID 11/11/20 [History Last Taken Unknown] Oral appliance #1 ea 02/17/22 [Rx Last Taken Unknown] furosemide 40 mg tablet 40 mg PO DAILY 05/03/22 [History Last Taken Unknown] losartan 25 mg tablet 25 mg PO DAILY 05/03/22 [History Last Taken 03/15/23] Allergy/AdvReac Type Severity Reaction Status Date / Time shellfish derived Allergy Rash Verified 10/27/22 15:11 acetaminophen [From Percocet] AdvReac i feel Verified 10/27/22 15:11 weird oxycodone [From Percocet] AdvReac i feel Verified 10/27/22 15:11 weird Family History Mother CAD (coronary artery disease) Cardiac arrest age 43 age 65 LVAD was placed Hypertension Myocardial infarction Diabetes Father CAD (coronary artery disease) [place] age 52 Hypertension Myocardial infarction Atrial fibrillation Hyperlipidemia Melanoma Diabetes Sister Heart disease Hypertension HAD RFA Aunt Ovarian cancer Other Kidney disease Leukemia Surgical History H/O arthroscopy of right knee History of History of colonoscopy History of left heart catheterization (05/21/18) History of tonsillectomy and adenoidectomy History of tubal ligation Hx of esophagogastroduodenoscopy kidney stone removal Social History Smoking Status: Never smoker ROS ROS ED Constitutional Constitutional ED: Denies chills, fever(s) or sweats Eyes Eyes: Denies change in vision ENT ENT ED: Denies dysphagia or sore throat Cardiovascular Cardiovascular: Denies chest pain, leg edema, palpitations or racing heartbeat Respiratory/Chest Respiratory/Chest: Denies cough, dyspnea or dyspnea on exertion Gastrointestinal Gastrointestinal: Denies abdominal pain, diarrhea, nausea or vomiting Genitourinary Genitourinary ED: Denies dysuria, hematuria or urinary frequency Musculoskeletal Musculoskeletal: Denies back pain, extremity pain or neck pain Integumentary Denies rash or wounds Neurologic Neurologic: Reports headache(s); Denies paresthesias or weakness EXAM Physical Exam Const Vital Signs: 06/23/23 16:44 06/23/23 16:46 06/23/23 17:55 Temperature 97.1 F L Temperature Source Temporal Pulse Rate 81 74 Respiratory Rate 16 13 Respiratory Effort Normal Blood Pressure 157/81 H 127/78 H Blood Pressure Mean 106 94 Pulse Ox 98 98 Oxygen Delivery Method Room Air 06/23/23 18:08 Temperature Temperature Source Pulse Rate 74 Respiratory Rate 13 Respiratory Effort Blood Pressure 127/78 H Blood Pressure Mean 94 Pulse Ox 98 Oxygen Delivery Method Positive well nourished and well developed General Appearance ED: well developed and NAD HEENT Reports moist mucous membranes normocephalic and atraumatic Eyes PERRL, EOMs intact bilaterally and conjunctivae normal General Eye ED: Yes normal appearance of both eyes Neck no lymphadenopathy and supple Neck Narrative: No meningismus General: Negative for tenderness Chest Wall Chest: Negative for tenderness Resp normal respiratory effort and normal air movement Effort and Inspection: symmetric chest movement; Negative for respiratory distress Cardio regular rate, regular rhythm and no murmurs Peripheral Pulses: pulses 2+ throughout GI normal to inspection, nondistended, normoactive bowel sounds and non-tender Palpation: Negative for guarding or rebound tenderness present Back/Spine no CVA tenderness and no thoracic nor lumbar tenderness Extremity normal to inspection General Extremety ED: Negative for edema or tenderness General Extremity: Negative for edema Neuro oriented x3, CN's II-XII intact bilaterally and no sensory deficits noted Sensorium / Orientation: awake and alert Skin no rashes or lesions noted and no wounds MDM MDM MDM Narrative Medical decision making narrative: Interventions / MDM: Differential diagnosis: Elevated blood pressure, migraine headache Diagnosis considered but do not suspect: Intracranial hemorrhage however CT negative. No meningitis symptoms My EKG interpretation: N/A Imaging independently reviewed and interpreted by myself: CT brain: No acute process External documents reviewed: N/A Test considered but not ordered:N/A ED course: Blood pressure systolic 157/81 on arrival. Nontoxic. Headache with reported blood pressure 180s at home. CT brain ordered. We will recheck blood pressure. CT negative. Blood pressure down to 127/78 without any intervention. Patient will monitor her blood pressure keep a log. She will call her PCP for adjustments as needed. All questions were answered. Re-evaluation: stable Disposition discussed with patient/family/significant other: Patient Case discussed with consulting clinician: N/A This note was generated with Contorion dictation software. It may contain incorrect words, spelling, and punctuation that were not noted in checking the note before signing. Radiography Diagnostic Testing: Clinical Impression(s) from Imaging Studies Brain CT 06/23/23 17:09 IMPRESSION: No acute intracranial finding. Electronically Signed: Desean Xiong MD at 17:47 EDT Reading Location ID and State: [address] [place] [address] Tel , Service support , Discharge Plan Triage Chief Complaint: Hypertension ED Provider: Rocky Oakley Dx/Rx/DC Orders Clinical Impression: Headache, Elevated blood pressure reading in office with diagnosis of hypertension Instructions: Understanding Headache Pain, Hypertension Dc Prescriptions: No Action metformin 500 mg tablet 500 mg PO TID (DME) Oral appliance See Rx Instructions .ROUTE .MEDSUPPLY Qty: 1 0RF Rx Instructions: As directed furosemide 40 mg tablet 40 mg PO DAILY losartan 25 mg tablet 25 mg PO DAILY omeprazole 20 MG capsule 20 mg PO DAILY Qty: 30 0RF Primary Care Provider: Talha Oconnor Referrals: Talha Oconnor DO [Primary Care Provider] - 1 Week Activity Restrictions/Additional Instructions: CT brain negative. Initial blood pressure on arrival 157/81, repeat prior to discharge 127/78. Continue your blood pressure medicine continue logging your blood pressure. Follow-up with your doctor. Disposition Disposition: Home, Self Care Discharge Date/Time: 06/23/23 18:12
[2023-06-23 17:55] VITALS: BP 127/78; PULSE 74; RESP 13; O2SAT 98
[2023-06-23 18:08] VITALS: BP 127/78; PULSE 74; RESP 13; O2SAT 98
== END 2023-06-23 18:12 | disposition home or self-care (01) ==
PROVIDERS: Emergency Provider Emergency Medicine; PCP Student in an Organized Health Care Education/Training Program; Visit Provider Emergency Medicine
DX: I10 Essential (primary) hypertension (principal); R51.9 Headache, unspecified; R73.03 Prediabetes; Z79.84 Long term (current) use of oral hypoglycemic drugs; Z79.899 Other long term (current) drug therapy
CPT/HCPCS: 70450; 99282; A4216

== ENCOUNTER 2023-09-27 15:30 | Outpatient (RCR) | payer OTHER, SELFPAY ==
--- NOTE | 2023-08-01 16:04 | HP.PTEVAL ---
Patient's Visit Information Visit Information Visit Information: ESTER OATES is a 57 year old F referred to Physical Therapy by CHERYL LEMUS with a diagnosis of UNILATERAL PRIMARY OSTEOARTHRITIS RIGHT ,LEFT KNEE ,COMPLEX LATERAL MENISCU. Date of Evaluation: 08/01/23 Physical Therapist: Osman Sauceda, PT, Cert MDT, OCS Visit Plan Frequency: 2x /Week Duration: 4 Weeks Plan: PT INTERVENTIONS ROM KNEE ,FLEXABILITY ,STRENGTHENING QUADS/HAMS/HIP , FUNMCTIONAL STRENGTHENING AND MODALTIES PRN Subjective Subjective: This 57 y/o female presents to physical therapy for knee pain bilateral knee pain. Patient has had right knee pain ~ 8 years and left knee pain ~ 3 weeks ago. Patient initially woke up with right knee pain with swelling . Seen x-rays showed progressive DJD left knee may need to have TKA in future. Patient seen DR because of left knee pain but DR recommended PT both knees. Patient had h/o right knee arthroscopic ~ 7 years ago. Patient has had one gel injection and plan to get 4 more gel injections. Pain located lateral knee left .Described as ache. Aggravating factors extended walking/standing ,pain increases with stairs and unable to squat /knee. Denies paresthesia/tingling-. Patient pain affects sleeping. Patient pain affects QOL and function /housework tasks. Patient goals to decrease pain. 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 EDEMA: chronic edema 2+ lower legs AROM: AROM supine knee flexion right 0-120 degrees ,left 0-30 degrees STAIRS: one step at time MMT: quads/hams 4/5 ,hip flexion 4/5 ,hip abduction ( peak force) 16.7 right ,left 17.8 Special Tests R Knee Joshua - Meniscus: Positive R Knee Heaven - ACL: Negative R Knee Valgus - MCL: Positive R Knee Varus - LCL: Positive R Knee Patellar Apprehension - PFS: Positive L Knee Joshua - Meniscus: Positive L Knee Heaven - ACL: Negative L Knee Valgus - MCL: Negative L Knee Varus - LCL: Negative L Knee Patellar Apprehension - PFS: Positive Balance/Special Test Scores Lower Extremity Functional Score: 34 Goals Goal 1:: Patient to be I with HEP for knee Goal Time Frame: 4-6 Weeks Goal 2:: Patient to improve AROM knee flexion by 5 degrees to improve stairs Goal Time Frame: 4-6 Weeks Goal 3:: Patient to improve peak force hip glut medias by 5 -10# to improve function and ADLS Goal Time Frame: 4-6 Weeks Goal 4:: Patient to improve LFES score by 5 points to improve function Goal Time Frame: 4-6 Weeks Goal 5:: Patient to demonstrate 50% improvement with improve function with less pain Rehabilitation Potential Physical Therapy Diagnosis: This patient has bilateral knee pain with DJD and h/o arthroscopic right knee with decrease ROM ,weakness ,impairs walking/standing ,stairs and housework tasks thus benefit from skilled PT Rehabilitation Potential: Good Anticipated Interventions Patient/Client Instruction: Educate patient on: Condition and Plan of Care For the Purpose of:: To decrease pain, To increase ROM, To improve muscle performance and motor function, To increase tolerance to activity/condition/position, To improve ability of physical actions for home/community/work/leisure, To improve health of tissue, To decrease soft tissue restriction, To increase flexibility/ROM, To reduce risk of recurrence and To improve tolerance to ADL's Therapeutic Exercise to Include: Strength training, Endurance training, Balance training, Postural training, Flexibilty training, Passive ROM and Active ROM Comment: QUADS/HAMS/HIP For the Purpose of:: To decrease pain, To increase ROM, To improve muscle performance and motor function, To increase tolerance to activity/condition/position, To improve ability of physical actions for home/community/work/leisure, To improve health of tissue, To decrease soft tissue restriction, To increase flexibility/ROM and To improve tolerance to ADL's TENS: Yes IF ES: Yes Cryotherapy (ice pack, ice massage): Yes Thermo therapy (hot pack): Yes Ultrasound (thermal/non thermal): Yes For the Purpose of:: To decrease pain, To increase ROM, To improve nutrient delivery to tissue, To increase oxygenation perfusion, To improve health of tissue and To decrease soft tissue restriction Text: Thank you for the opportunity to evaluate your patient. For Medicare and Medicare HMO plans, please review the plan of care and approve it. It will need to be FAXED BACK to us at [phone] for Medicare purposes. For Medicare only, by signing this I certify the plan of care. Please let me know if there are questions or concerns regarding this plan of care. Physician Signature: Date:
--- NOTE | 2023-09-27 15:56 | HP.PTDCSUM ---
Discharge Summary D/C summary: It has been my pleasure to treat ESTER OATES referred by CHERYL LEMUS, with the diagnosis of UNILATERAL PRIMARY OSTEOARTHRITIS RIGHT ,LEFT KNEE ,COMPLEX LATERAL MENISCU for a total of 12 visit(s). Discharge Date: 09/27/23 Please see the following information for a summary of their discharge status. Subjective Subjective: Doing well Pain Right Knee: Pain Intensity (Out of 10): 0 Left Knee: Pain Intensity (Out of 10): 0 Overall Improvement % Improvement: 50 Objective Objective/Function: POSTURE: knee slightly flexed ,valgus GAIT: ambulates with knee slightly flexes decrease stance time NEURO: denies paresthesia/tingling FLEXABILITY: hamstrings min tight PALAPTION: UNREMARKABLE EDEMA: chronic edema 2+ lower legs AROM: AROM supine knee flexion right 0-120 degrees ,left 0-130 degrees STAIRS: one step at time MMT: quads/hams 4/5 ,hip flexion 4/5 ,hip abduction ( peak force) 27.7 right ,left 33.7 Goals Goal 1:: Patient to be I with HEP for knee Goal Progress: Goal Met Goal 2:: Patient to improve AROM knee flexion by 5 degrees to improve stairs Goal Progress: Goal Met Goal 3:: Patient to improve peak force hip glut medias by 5 -10# to improve function and ADLS Goal Progress: Goal Met Goal 4:: Patient to improve LFES score by 5 points to improve function Goal Progress: Goal Met Goal 5:: Patient to demonstrate 50% improvement with improve function with less pain Goal Progress: Goal Met Plan Plan: D/C D/C Information Discharge Comments: HEP d/c sentence: If there are questions or concerns regarding this patient's physical therapy, please feel free to call me at [phone]. Thank you for the referral of this patient. Sincerely, Osman Sauceda, PT, Cert MDT, OCS Balance/Gait/Functional tests Balance/Special Test Scores Lower Extremity Functional Score: 59 Improvement % Improvement: 50
== END 2023-09-27 19:00 | disposition home or self-care (01) ==
LOC: PT 15:30
PROVIDERS: PCP Student in an Organized Health Care Education/Training Program
DX: M17.0 Bilateral primary osteoarthritis of knee (principal); S83.272D Complex tear of lateral meniscus, current injury, left knee, subsequent encounter
CPT/HCPCS: 97110; 97162; 97530

== ENCOUNTER → 2024-10-02 | Outpatient (CLI) | payer OTHER, SELFPAY | END | disposition home or self-care (01) | LOC: LABSPEC 12:08 | PROVIDERS: PCP Student in an Organized Health Care Education/Training Program; Referring Provider Student in an Organized Health Care Education/Training Program; Visit Provider Student in an Organized Health Care Education/Training Program | DX: E61.1 Iron deficiency (principal) | CPT/HCPCS: 82274 ==

== ENCOUNTER 2024-12-13 06:00 | Day surgery (SDC) | payer OTHER, SELFPAY ==
--- NOTE | 2024-12-10 14:35 | PAT.ANESEVAL ---
Pre-Assessment Diagnosis/Proposed Procedure Planned Operative Procedure(s): EGD Anesthesia History Anesthesia History - medical assistant cardiology: Anesthesia History - medical assistant cardiology Hx Hospitalization No 12/10/24 13:23 Any Problems With Anesthesia No 12/10/24 13:23 Cholinesterase deficiency No 12/10/24 13:23 You/Your Family Experience No 12/10/24 13:23 fever (hyperthermia) with Relationship Recent Exposure to Contagious No 03/15/23 06:06 Disease Does patient have nerve No 12/10/24 13:23 stimulator Patient instructed to have device shut off --Does patient have Pacemaker or ICD? When Was Last Pacemaker Check QUESTION #4 FULL TEXT: You/Your Family Experience fever (hyperthermia) with Anesthesia Last Oral Intake Last Oral intake: Last Oral Intake NPO since Meds taken in AM with sips of water? Meds patient instructed to take am of surgery PONV PONV - medical assistant cardiology: PONV - medical assistant cardiology Female Yes 12/10/24 13:23 HX of Motion Sickness No 12/10/24 13:23 HX of N/V After Surgery No 12/10/24 13:23 Non-Smoker Yes 12/10/24 13:23 Duration of Surgery greater No 12/10/24 13:23 than 60 minutes Number of Risk Factors 2 12/10/24 13:23 PONV Score Moderate Risk 12/10/24 13:23 Height & Weight Height & Weight: Anesthesia: Height & Weight Height 5 ft 6 in 05/15/24 15:41 Respiratory Assessment Respiratory Assessment - medical assistant cardiology: Respiratory Tract Infection Hx - medical assistant cardiology Hx Respiratory Tract Infection No 12/10/24 13:23 STOP Sleep Apnea STOP Sleep Apnea - medical assistant cardiology: STOP Sleep Apnea - medical assistant cardiology Hx Hypertension Yes: CONTROLLED WITH MED 12/10/24 13:23 Hx Sleep Apnea Yes 12/10/24 13:23 CPAP Yes: PT STATES SINCE LOSING 12/10/24 13:23 WEIGHT DOESNT HAVE ISSUES SO DOESNT WEAR BIPAP No 12/10/24 13:23 Do you snore loudly (louder than talking or can be heard Do you often feel tired/ fatigued/ sleepy during daytime? Has anyone observed you stop breathing during sleep? STOP Results Positive 12/10/24 13:23 QUESTION #5 FULL TEXT : Do you snore loudly (louder than talking or can be heard through closed doors)? 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 Specify any problems Hx of Preganancy in last 3 N/A 12/10/24 13:23 Months Nurse Filling Out Transfusion NBUCHER 12/10/24 13:23 & Questions: Date: 12/10/24 12/10/24 13:23 Time: 13:25 12/10/24 13:23 Patient unable to answer at this time (ie. confused, unrespo /Reproduction History /Reproductive History - medical assistant cardiology: /Reproductive Hx- medical assistant cardiology Hx Now Gestational Age (in weeks): EDC: Hx Hx Para Hx Section SAB No 02/24/23 14:02 PFSH Medical History Wears contact lenses Pre-diabetes Arthritis Low iron Migraine headache Syncope History of ulceration History of hiatal hernia Difficulty swallowing Sleep apnea Non-smoker Leg cramps History of edema History of echocardiogram History of stress test Hypertension Cardiology follow-up encounter Thyroid enlargement SVT (supraventricular tachycardia) Polycystic ovary syndrome Menorrhagia Lymphedema Leukopenia Hyperchloremia Aortic valve sclerosis Allergic rhinitis BMI 45.0-49.9, adult Hyperglycemia Kidney stones Obesity Hypertension Home Medications ?Medication ?Instructions ?Recorded ?Last Taken ?Type Oral appliance #1 ea 02/17/22 Unknown Rx ferrous sulfate 325 mg (65 mg 325 mg PO DAILY 04/04/24 Unknown History iron) tablet omeprazole 20 mg capsule,delayed 40 mg PO DAILY 04/04/24 Unknown History release furosemide 40 mg tablet 30 mg PO DAILY 04/15/24 Unknown History metformin 500 mg tablet 500 mg PO DAILY 04/15/24 Unknown History losartan 25 mg tablet 50 mg PO DAILY 05/15/24 Unknown History cholecalciferol (vitamin D3) 25 25 mcg PO DAILY 12/10/24 Unknown History mcg (1,000 unit) capsule (Vitamin D3) mecobalamin (vitamin B12) 1,000 1,000 mcg PO DAILY 12/10/24 Unknown History mcg chewable tablet Allergy/AdvReac Type Severity Reaction Status Date / Time shellfish derived Allergy Rash Verified 05/15/24 15:47 oxycodone (From Percocet) AdvReac i feel Verified 05/15/24 15:47 weird Family History Mother CAD (coronary artery disease) Cardiac arrest age 43 age 65 LVAD was placed Hypertension Myocardial infarction Diabetes Heart disease Father CAD (coronary artery disease) [place] age 52 Hypertension Myocardial infarction Atrial fibrillation Hyperlipidemia Melanoma Diabetes Alcohol abuse Heart disease Sister Heart disease Hypertension HAD RFA Aunt Ovarian cancer Stomach cancer Uncle Leukemia Lung cancer Unknown Ovarian cancer Other Kidney disease Surgical History Hx of esophagogastroduodenoscopy History of colonoscopy History of left heart catheterization (05/21/18) History of tubal ligation kidney stone removal H/O arthroscopy of right knee History of tonsillectomy and adenoidectomy History of Social History current occupational status: employed Smoking Status: Never smoker alcohol intake: never substance use type: does not use Audit: Pertinent Findings Pertinent Findings EKG Perinent findings: October 02, 2018. Sinus rhythm. Stress test pertinent findings: December 05 2017. Normal stress test. No evidence for inducible ischemia. No evidence of scarred myocardium. Ejection fraction is 74%. Heart catheterization pertinent findings: May 21, 2018. Normal coronary arteries. Ejection fraction 60%. Consult pertinent findings: May 02, 2018. 1. Chest pain-patient continues to have intermittent chest discomfort despite a normal stress test and normal EKG. Plan for cardiac cath (see above). 2. Near syncope-likely vasovagal. Plan for cath. Recommendation Anesthesia Recommendation Anesthesia recommendation: OPTIMIZED for anesthesia
[2024-12-13] VITALS (7 sets, daily range): BP systolic 129–150; BP diastolic 81–100; PULSE 66–89; RESP 16; TEMP 36.1–36.7; O2SAT 92–99; BMI 44.8
--- NOTE | 2024-12-13 06:27 | PCM.PRE.AN2 ---
ASA Classification* ASA Classification ASA Classification: 3 Assessment & Plan Anesthesia* Anesthesia Assessment Anesthesia Assessment: Discussed sedation and/or anesthesia options, risks, benefits, and alternatives with patient/parents/legal guardian/POA. Questions invited. The patient/parents/legal guardian/POA seems to understand and agrees to proceed with anesthesia plan. Reviewed the physical assessment, medical history, allergy history and patient home medications list prior to surgery/procedure/anesthetic and documented any changes. Performed airway and anesthesia risk assessments. Anesthesia Type Anesthesia Type: MAC History Source History Obtained from:: Patient and Chart Anesthesia Focused Assessment* Temperature: 97.9 F Pulse Rate: 66 Blood Pressure: 129/85 Respiratory Rate: 16 Pulse Ox: 99 Oxygen Delivery Method: Room Air Airway Assessment Mouth opens: >3 cm Mallampati Score: III Teeth Condition: Caps/Crowns (Patient left lower crown. It is tight.) Neck Range of motion (ROM): Full ROM Focused Labs Anesthesia Preop lab: CBC WBC 5.4 K/mm3 (4.4-11.0) 05/15/24 15:20 05/15/24 RBC 4.48 M/mm3 (4.2-5.4) 05/15/24 15:20 05/15/24 Hgb 12.2 g/dL (12.0-15.0) 05/15/24 15:20 05/15/24 Hct 38.9 % (37-47) 05/15/24 15:20 05/15/24 Plt Count 222 K/mm3 (150-450) 05/15/24 15:20 05/15/24 CHEMISTRY Potassium 3.6 mmol/L (3.5-5.1) 05/15/24 15:20 05/15/24 Sodium 137 mmol/L (136-145) 05/15/24 15:20 05/15/24 Magnesium 2.2 mg/dL (1.6-2.6) 04/15/24 17:15 04/15/24 Phosphorus 2.8 mg/dL (2.5-4.9) 04/15/24 17:15 04/15/24 BUN 14 mg/dL (7-18) 05/15/24 15:20 05/15/24 Creatinine 0.85 mg/dL (0.55-1.02) 05/15/24 15:20 05/15/24 Glucose 97 mg/dL (74-106) 05/15/24 15:20 05/15/24 POC Glucose 118 mg/dL (74-106) H 08/31/22 08:31 08/31/22 TSH 2.54 uIU/mL (0.358-3.74) 04/23/20 08:06 04/23/20 COAG Urine Test Negative Negative 08/31/22 08:15 08/31/22 Pre-Assessment Diagnosis/Proposed Procedure Planned Operative Procedure(s): EGD Anesthesia History Anesthesia History - entertainment reporter: Anesthesia History - entertainment reporter Hx Hospitalization No 12/10/24 13:23 Any Problems With Anesthesia No 12/10/24 13:23 Cholinesterase deficiency No 12/10/24 13:23 You/Your Family Experience No 12/10/24 13:23 fever (hyperthermia) with Relationship Recent Exposure to Contagious No 03/15/23 06:06 Disease Does patient have nerve No 12/10/24 13:23 stimulator Patient instructed to have device shut off --Does patient have Pacemaker or ICD? When Was Last Pacemaker Check QUESTION #4 FULL TEXT: You/Your Family Experience fever (hyperthermia) with Anesthesia Last Oral Intake Last Oral intake: Last Oral Intake NPO since Meds taken in AM with sips of water? Meds patient instructed to take am of surgery Any additional information?: Yes NPO since: 00:00 Meds taken in AM with sips of water?: No PONV PONV - entertainment reporter: PONV - entertainment reporter Female Yes 12/10/24 13:23 HX of Motion Sickness No 12/10/24 13:23 HX of N/V After Surgery No 12/10/24 13:23 Non-Smoker Yes 12/10/24 13:23 Duration of Surgery greater No 12/10/24 13:23 than 60 minutes Number of Risk Factors 2 12/10/24 13:23 PONV Score Moderate Risk 12/10/24 13:23 Height & Weight Height & Weight: Anesthesia: Height & Weight Height 5 ft 6 in 05/15/24 15:41 Weight 126 kg Respiratory Assessment Respiratory Assessment - entertainment reporter: Respiratory Tract Infection Hx - entertainment reporter Hx Respiratory Tract Infection No 12/10/24 13:23 STOP Sleep Apnea STOP Sleep Apnea - entertainment reporter: STOP Sleep Apnea - entertainment reporter Hx Hypertension Yes: CONTROLLED WITH MED 12/10/24 13:23 Hx Sleep Apnea Yes 12/10/24 13:23 CPAP Yes: PT STATES SINCE LOSING 12/10/24 13:23 WEIGHT DOESNT HAVE ISSUES SO DOESNT WEAR BIPAP No 12/10/24 13:23 Do you snore loudly (louder than talking or can be heard Do you often feel tired/ fatigued/ sleepy during daytime? Has anyone observed you stop breathing during sleep? STOP Results Positive 12/10/24 13:23 QUESTION #5 FULL TEXT : Do you snore loudly (louder than talking or can be heard through closed doors)? 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 Specify any problems Hx of Preganancy in last 3 N/A 12/10/24 13:23 Months Nurse Filling Out Transfusion NBUCHER 12/10/24 13:23 & Questions: Date: 12/10/24 12/10/24 13:23 Time: 13:12/10/24 13:23 Patient unable to answer at this time (ie. confused, unrespo /Reproduction History /Reproductive History - entertainment reporter: /Reproductive Hx- entertainment reporter Hx Now Gestational Age (in weeks): EDC: Hx Hx Para Hx Section SAB No 02/24/23 14:02 PFSH Medical History Wears contact lenses Pre-diabetes Arthritis Low iron Migraine headache Syncope History of ulceration History of hiatal hernia Difficulty swallowing Sleep apnea Non-smoker Leg cramps History of edema History of echocardiogram History of stress test Hypertension Cardiology follow-up encounter Thyroid enlargement SVT (supraventricular tachycardia) Polycystic ovary syndrome Menorrhagia Lymphedema Leukopenia Hyperchloremia Aortic valve sclerosis Allergic rhinitis BMI 45.0-49.9, adult Hyperglycemia Kidney stones Obesity Hypertension Home Medications ?Medication ?Instructions ?Recorded ?Last Taken ?Type Oral appliance #1 ea 02/17/22 Unknown Rx ferrous sulfate 325 mg (65 mg 325 mg PO DAILY 04/04/24 Unknown History iron) tablet omeprazole 20 mg capsule,delayed 40 mg PO DAILY 04/04/24 Unknown History release furosemide 40 mg tablet 30 mg PO DAILY 04/15/24 Unknown History metformin 500 mg tablet 500 mg PO DAILY 04/15/24 Unknown History losartan 25 mg tablet 50 mg PO DAILY 05/15/24 Unknown History cholecalciferol (vitamin D3) 25 25 mcg PO DAILY 12/10/24 Unknown History mcg (1,000 unit) capsule (Vitamin D3) mecobalamin (vitamin B12) 1,000 1,000 mcg PO DAILY 12/10/24 Unknown History mcg chewable tablet Allergy/AdvReac Type Severity Reaction Status Date / Time shellfish derived Allergy Rash Verified 05/15/24 15:47 oxycodone (From Percocet) AdvReac i feel Verified 05/15/24 15:47 weird Family History Mother CAD (coronary artery disease) Cardiac arrest age 43 age 65 LVAD was placed Hypertension Myocardial infarction Diabetes Heart disease Father CAD (coronary artery disease) [place] age 52 Hypertension Myocardial infarction Atrial fibrillation Hyperlipidemia Melanoma Diabetes Alcohol abuse Heart disease Sister Heart disease Hypertension HAD RFA Aunt Ovarian cancer Stomach cancer Uncle Leukemia Lung cancer Unknown Ovarian cancer Other Kidney disease Surgical History Hx of esophagogastroduodenoscopy History of colonoscopy History of left heart catheterization (05/21/18) History of tubal ligation kidney stone removal H/O arthroscopy of right knee History of tonsillectomy and adenoidectomy History of Social History current occupational status: employed Smoking Status: Never smoker alcohol intake: never substance use type: does not use Review of Systems (Anesthesia) ROS Narrative System reviewed and no additional complaints, except as documented.
--- NOTE | 2024-12-13 07:00 | EGD_PTH ---
PATIENT: ESTER OATES LOC: [facility] U#:[id number] AGE/SX: 59/F ROOM: RE12/13/[address]: Dr. Oracio Edmondson DO : 1965 BED: DIS: 12/13/2024 SPEC #: [id number] RECD: 12/13/24 12:57 STATUS: DELFINA RECaro #: [id number] WILFREDO: 12/13/24 07:[address]: Oracio Edmondson DEPT: SURGICAL PATHOLOGY RECD BY: Reagan Arenas ENTERED: 12/13/24 12:57 SP TYPE: EGD BIOPSY CHARLENE DR: Dr. Talha Oconnor DO Tissues: A - Gastric mucous membrane B - Esophagus, NOS Procedures: Immunohistochemical Stains Surgery Specimen Level IV HEADER OPERATION: EGD with biopsy and esophageal dilatation PRE-OP DIAGNOSIS: GERD, epigastric pain, dysphagia TISSUE SUBMITTED: A- Gastric body biopsy, B- Distal esophagus biopsy MICROSCOPIC DIAGNOSIS A. Stomach, body, biopsy: * Oxyntic mucosa with chronic inflammation. * IHC negative for H pylori organisms. B. Distal esophagus, biopsy: * Cardio-oxyntic mucosa negative for goblet cell metaplasia. * No squamous mucosa seen. MICROSCOPIC DESCRIPTION Slides are reviewed. All matched controls reacted appropriately. These tests were developed and their performance characteristics determined by [facility]. They may not have been cleared or approved by the U.S. Food and Drug Administration. The FDA has determined that such clearance or approval is not necessary. The above immunohistochemical/dualISH markers are ordered and reviewed by the Pathologist. GROSS DESCRIPTION A. Received in formalin in a container labeled with the patient's name, date of , and gastric body biopsy are multiple rodrigez-pink fragments of mucosal tissue measuring 1.5 x 0.5 x 0.3 cm in aggregate. Submitted in toto in A1. B. Received in formalin in a container labeled with the patient's name, date of , and distal esophagus biopsy are 2 rodrigez-pink fragments of mucosal tissue measuring 0.3 x 0.3 x 0.3 cm and 0.4 x 0.3 x 0.3 cm. Submitted in toto in B1. [facility] 12-13-2024 CPT:[id number]
--- NOTE | 2024-12-13 07:12 | PCM.HP.STD ---
HPI - General General Date of Admission: 12/13/24 Date of Service: 12/13/24 Chief Complaint: esophageal dysmotility HPI Narrative Chief Complaint: esophageal dysmotilty and elevated gastrin Esophagram 03.07.22 small/moderate hiatal hernia; acid reflux; tertiary contraction of esophagus. *[facility] established 07.05.22 with four year history of dysphagia particularly with raw vegetables. ? EGD and Benitez 08.31.22 irregular Zline without metaplasia; small hiatal hernia; duodenitis. ? Benitez total [place]ter 16.0. Day 1 [place]ter 18.2 upright >supine. Day 2 [place]ter 14.4 upright>supine OV 1.4.23 with epigastric pain and dysphagia. Start doxycycline. ? Esophageal manometry 1.6. 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 Continues omeprazole 20mg QD without reflux symptoms. ? EGD 7.5.23 abnormal esophageal motility with spasticity of esophageal body, tertiary peristaltic waves, spastic LES, Botox injected. OV 8.1.23 feels swallowing has improved with significantly improved frequency. Heartburn has been an issue; she recently went on vacation and did not pay particular attention to her diet and has had worsened severity and frequency; typically managed with diet and omeprazole which is effective. OV 1.15.25 Pt has been doing well since last visit. Her swallowing has been well controlled since having botox. She has noticed that she is having some problems with swallowing her pills recently. It is not as bad as it has been in the past but does feel like it may progress. Pt PCP sent her to us for an elevated gastrin level. SHe is on omeprazole 40 mg daily. [facility] Medical History Wears contact lenses Pre-diabetes Arthritis Low iron Migraine headache Syncope History of ulceration History of hiatal hernia Difficulty swallowing Sleep apnea Non-smoker Leg cramps History of edema History of echocardiogram History of stress test Hypertension Cardiology follow-up encounter Thyroid enlargement SVT (supraventricular tachycardia) Polycystic ovary syndrome Menorrhagia Lymphedema Leukopenia Hyperchloremia Aortic valve sclerosis Allergic rhinitis BMI 45.0-49.9, adult Hyperglycemia Kidney stones Obesity Hypertension Home Medications ?Medication ?Instructions ?Recorded ?Last Taken ?Type Oral appliance #1 ea 02/17/22 Unknown Rx ferrous sulfate 325 mg (65 mg 325 mg PO DAILY 04/04/24 12/11/24 History iron) tablet omeprazole 20 mg capsule,delayed 40 mg PO DAILY 04/04/24 12/12/24 History release furosemide 40 mg tablet 30 mg PO DAILY 04/15/24 12/12/24 History metformin 500 mg tablet 500 mg PO DAILY 04/15/24 12/12/24 History losartan 25 mg tablet 50 mg PO DAILY 05/15/24 12/12/24 History cholecalciferol (vitamin D3) 25 25 mcg PO DAILY 12/10/24 12/12/24 History mcg (1,000 unit) capsule (Vitamin D3) mecobalamin (vitamin B12) 1,000 1,000 mcg PO DAILY 12/10/24 12/12/24 History mcg chewable tablet Allergy/AdvReac Type Severity Reaction Status Date / Time shellfish derived Allergy Rash Verified 05/15/24 15:47 oxycodone (From Percocet) AdvReac i feel Verified 05/15/24 15:47 weird Family History Mother CAD (coronary artery disease) Cardiac arrest age 43 age 65 LVAD was placed Hypertension Myocardial infarction Diabetes Heart disease Father CAD (coronary artery disease) [place] age 52 Hypertension Myocardial infarction Atrial fibrillation Hyperlipidemia Melanoma Diabetes Alcohol abuse Heart disease Sister Heart disease Hypertension HAD RFA Aunt Ovarian cancer Stomach cancer Uncle Leukemia Lung cancer Unknown Ovarian cancer Other Kidney disease Surgical History Hx of esophagogastroduodenoscopy History of colonoscopy History of left heart catheterization (05/21/18) History of tubal ligation kidney stone removal H/O arthroscopy of right knee History of tonsillectomy and adenoidectomy History of Social History current occupational status: employed Smoking Status: Never smoker alcohol intake: never substance use type: does not use ROS Constitutional Constitutional: Denies fatigue, fever(s), poor appetite, weight gain or weight loss Gastrointestinal Gastrointestinal: Denies belching, bloating, change in bowel habits, change in stool character, chewing difficulty, coffee ground emesis, constipation, cramping, diarrhea, dyspepsia, dysphagia, early satiety, excessive flatus, fecal incontinence, heartburn, hematemesis, hematochezia, hemorrhoids, loose stools, melena, nausea, odynophagia, rectal bleeding, tenesmus, vomiting or weight changes Vital Signs Vital Signs Vital Signs: 12/13/24 06:30 12/13/24 06:32 12/13/24 06:39 Temperature 97.9 F 97.9 F Temperature Source Temporal Pulse Rate 66 66 Respiratory Rate 16 16 Respiratory Pattern Normal Blood Pressure 129/85 H 129/85 H Blood Pressure Mean 99 Blood Pressure Source Monitor Blood Pressure Position Semi-Fowlers Blood Pressure Location Right Arm Pulse Ox 99 99 Oxygen Delivery Method Room Air Room Air Weight Weight: 277 lb 12.519 oz Body Mass Index (BMI) 44.8 Physical Exam Const alert, oriented x3, no apparent distress and healthy appearing General Appearance: cooperative GI normal to inspection, nondistended, normoactive bowel sounds, soft to palpation, non-tender and non-distended Percussion: normal to percussion Rectal Exam: deferred Assessment & Plan Assessment/Plan (1) GERD (gastroesophageal reflux disease): QUALIFIERS: Esophagitis presence: without esophagitis Qualified Code(s): K21.9 - Gastro-esophageal reflux disease without esophagitis (2) Epigastric pain: (3) Dysphagia: PLAN: Assessment and Plan Assessment and Plan (1) Dysphagia: Status: Acute Plan: This is a 59 yo female pt here today for f/u. Pt is established with [facility] for esophageal dysmotility with abnormal manometry. Pt has had some issues with swallowing her pills recently which is how it started in the past. She would like to be schedule for EGD with botox as this has been helpful with her symptoms in the past. Pt PCP recommended her to have an appointment with us for an elevated gastrin level at 248. She is on omeprazole 40 mg daily. I explained that this elevation is likely due to the PPI as this can elevate it. She has had chronic iron def anemia with no recent colonoscopy and EGD. Will order stool testing to ensure she is not having GI bleeding. SHe is agreeable to plan. -EGD with botox -Consider colonoscopy -Stool testing for blood -Continue PPI (2) Iron deficiency: Status: Chronic Orders: Orders Stool Occult Blood iFOB Today E61.1 - Iron deficiency
--- NOTE | 2024-12-13 07:35 | PCM.POST.ANE ---
Anesthesia: Postop Eval I Current Vital Signs Temperature: 97 F Pulse Rate: 89 Blood Pressure: 145/81 Respiratory Rate: 16 Pulse Ox: 92 Oxygen Delivery Method: Room Air Assessment Airway patent: Yes Spontaneous unlabored respirations: Yes Mental status: Awake and Calm nausea: No Vomiting: No Anesthesia Complication: No Fluid Hydration Crystalloid volume administer (ml): 30 Total IV fluid infused: 30 Progress Note Anesthesia document: Postop Eval 1 completed: Yes
--- NOTE | 2024-12-13 07:40 | POSTOPAN2_ITS ---
Anesthesia Postop Eval I Sum Postop Eval Completion status Anesthesia document: Postop Eval 1 completed: Yes Anesthesia Postop Eval I Summary Anesthesia Postop Eval I Summary: Anesthesia Postop Eval I: Assessment Summary Airway patent Yes 12/13/24 07:35 CONCERT [email or web address].MDOT Spontaneous unlabored Yes 12/13/24 07:35 CONCERT SINGER.MDOT respirations Mental status Awake,Calm 12/13/24 07:35 CONCERT SINGER.MDOT nausea No 12/13/24 07:35 CONCERT SINGER.MDOT Vomiting No 12/13/24 07:35 CONCERT SINGER.MDOT Anesthesia Postop Eval I: Fluid Summary Crystalloid volume administer 30 12/13/24 07:35 CONCERT SINGER.MDOT (ml) Colloids volume administered ( ml) Blood Product volume administered (ml) Total IV fluid infused 30 12/13/24 07:35 CONCERT [email or web address].MDOT Anesthesia Postop Eval I: Summary Notes Anesthesia Complication No 12/13/24 07:35 CONCERT SINGER.MDOT Anesthesia Complication Comment: Post-operative progress note Anesthesia: Postop Eval II Evaluation Mental status: Awake and Calm Pain Level: 0 nausea: No Vomiting: No Complications Anesthesia Complication: No
--- NOTE | 2024-12-13 07:40 | PCM.POSTANE2 ---
Anesthesia Postop Eval I Sum Postop Eval Completion status Anesthesia document: Postop Eval 1 completed: Yes Anesthesia Postop Eval I Summary Anesthesia Postop Eval I Summary: Anesthesia Postop Eval I: Assessment Summary Airway patent Yes 12/13/24 07:35 [email or web address] Spontaneous unlabored Yes 12/13/24 07:35 [email or web address] [email or web address] respirations Mental status Awake,Calm 12/13/24 07:35 [email or web address] nausea No 12/13/24 07:35 [email or web address] Vomiting No 12/13/24 07:35 [email or web address] Anesthesia Postop Eval I: Fluid Summary Crystalloid volume administer 30 12/13/24 07:35 [email or web address] (ml) Colloids volume administered ( ml) Blood Product volume administered (ml) Total IV fluid infused 30 12/13/24 07:35 [email or web address] Anesthesia Postop Eval I: Summary Notes Anesthesia Complication No 12/13/24 07:35 [email or web address] Anesthesia Complication Comment: Post-operative progress note Anesthesia: Postop Eval II Evaluation Mental status: Awake and Calm Pain Level: 0 nausea: No Vomiting: No Complications Anesthesia Complication: No
--- NOTE | 2024-12-13 07:48 | OP.EGD_ITS ---
Patient Name: Claudia Echeverria Procedure Date: 12/13/2024 7:14 AM Date of : 1965 Age: 59 Procedure: Upper GI endoscopy Indications: Dysphagia, Heartburn Providers: Oracio Edmondson DO Referring MD: Talha Oconnor Do Medicines: Monitored Anesthesia Care Patient Profile: This is a 59 year old female. Refer to note in patient chart for documentation of history and physical. Patient has symptoms of chronic dysphagia. Complications: No immediate complications. Procedure: Pre-Anesthesia Assessment: - Prior to the procedure, a History and Physical was performed, and patient medications and allergies were reviewed. The patient is competent. The risks and benefits of the procedure and the sedation options and risks were discussed with the patient. All questions were answered and informed consent was obtained. Patient identification and proposed procedure were verified by the physician in the pre-procedure area. Mental Status Examination: alert and oriented. Airway Examination: normal oropharyngeal airway and neck mobility. Respiratory Examination: clear to auscultation. CV Examination: normal. Prophylactic Antibiotics: The patient does not require prophylactic antibiotics. Prior Anticoagulants: The patient has taken no anticoagulant or antiplatelet agents except for NSAID medication. ASA Grade Assessment: II - A patient with mild systemic disease. After reviewing the risks and benefits, the patient was deemed in satisfactory condition to undergo the procedure. The anesthesia plan was to use monitored anesthesia care (MAC). Immediately prior to administration of medications, the patient was re-assessed for adequacy to receive sedatives. The heart rate, respiratory rate, oxygen saturations, blood pressure, adequacy of pulmonary ventilation, and response to care were monitored throughout the procedure. The physical status of the patient was re-assessed after the procedure. After obtaining informed consent, the endoscope was passed under direct vision. Throughout the procedure, the patient's blood pressure, pulse, and oxygen saturations were monitored continuously. The gastroscope was introduced through the mouth, and advanced to the second part of duodenum. The upper GI endoscopy was accomplished without difficulty. The patient tolerated the procedure well. Scope In: 7:23:58 AM Scope Out: 7:33:24 AM Total Procedure Duration Time 0 hours 9 minutes 26 seconds Findings: Abnormal motility was noted in the lower third of the esophagus. The cricopharyngeus was abnormal. There is a decrease in motility of the esophageal body. The distal esophagus/lower esophageal sphincter is spastic, but gives up passage to the endoscope. Secondary peristaltic waves are noted. A guidewire was placed and the scope was withdrawn. Dilation was performed with a Savary dilator with no resistance at 60 Fr. The dilation site was examined and showed moderate improvement in luminal narrowing. Estimated blood loss was minimal. The Z-line was irregular and was found 40 cm from the incisors. Biopsies were taken with a cold forceps for histology. Verification of patient identification for the specimen was done. Estimated blood loss was minimal. Diffuse prominent gastric folds were found in the gastric body. Biopsies were taken with a cold forceps for histology. Verification of patient identification for the specimen was done. Biopsies were taken with a cold forceps for Helicobacter pylori testing. Verification of patient identification for the specimen was done. Estimated blood loss was minimal. No gross lesions were noted in the first portion of the duodenum. Impression: - Abnormal esophageal motility, established esophageal spasm. Dilated. - Z-line irregular, 40 cm from the incisors. Biopsied. - Enlarged gastric folds. Biopsied. - No gross lesions in the first portion of the duodenum. Recommendation: - Discharge patient to home. - Resume previous diet. - Continue present medications. - Await pathology results. Procedure Code(s): --- Professional --- 56864, Esophagogastroduodenoscopy, flexible, transoral; with insertion of guide wire followed by passage of dilator(s) through esophagus over guide wire 14636, 59,51, Esophagogastroduodenoscopy, flexible, transoral; with biopsy, single or multiple CPT copyright 2021 [employer]. All rights reserved. The codes documented in this report are preliminary and upon corn cutter review may be revised to meet current compliance requirements. Oracio Edmondson DO 12/13/2024 7:48:16 AM This report has been signed electronically. Number of Addenda: 0 Note Initiated On: 12/13/2024 7:14 AM
--- NOTE | 2024-12-13 07:49 | OP.CCLET_ITS ---
12/13/2024 Talha Oconnor Do Re : Upper GI endoscopy procedure for Claudia Echeverria Dear Anastasia This procedure was performed on Friday, December 13, 2024. My impressions and recommendations are as follows: Impressions : - Abnormal esophageal motility, established esophageal spasm. Dilated. - Z-line irregular, 40 cm from the incisors. Biopsied. - Enlarged gastric folds. Biopsied. - No gross lesions in the first portion of the duodenum. Recommendations : - Discharge patient to home. - Resume previous diet. - Continue present medications. - Await pathology results. My findings are described in the full procedure note, which is enclosed. If I can be of further assistance, please feel free to contact me at . Sincerely, Oracio Edmondson DO 12/13/2024 7:48:16 AM This report has been signed electronically.
== END 2024-12-13 08:26 | disposition home or self-care (01) ==
LOC: EN 06:00 → AC 06:02
PROVIDERS: PCP Student in an Organized Health Care Education/Training Program; Referring Provider Student in an Organized Health Care Education/Training Program; Visit Provider Internal Medicine Gastroenterology
PROC: 0DJ08ZZ Inspection of Upper Intestinal Tract, Via Natural or Artificial Opening Endoscopic (ICD-10-PCS; CPT 43235; principal; 2024-12-13 06:55)
DX: K22.4 Dyskinesia of esophagus (principal); K44.9 Diaphragmatic hernia without obstruction or gangrene; K21.9 Gastro-esophageal reflux disease without esophagitis; I10 Essential (primary) hypertension; Z79.899 Other long term (current) drug therapy
CPT/HCPCS: 43248; 43239; 88305; 88342; A4216; C1769; J2405

== ENCOUNTER → 2025-04-08 | Outpatient (CLI) | payer OTHER, SELFPAY ==
[2025-04-08 13:24] LABS: Hematocrit 38.2 % (37-47); Hemoglobin 12.5 g/dL (12.0-15.0); Mean Corp Hgb Conc 32.7 g/dL (32-36); Mean Corpuscular Volume 88.8 fL (81-99); Mean Platelet Vol. 11.4 fl (6.2-12.0); Platelet Count 181 K/mm3 (150-450); RBC Distribution Width CV 12.5 % (11.6-14.6); RBC Distribution Width SD 41.1 fl (35.1-43.9); Red Blood Count 4.30 M/mm3 (4.2-5.4); White Blood Count 3.6 K/mm3 (4.4-11.0)
[2025-04-08 14:31] LABS: AST(SGOT) 29 U/L (<=31); Alanine Aminotransfer ALT/SGPT 33 U/L (<=34); Anion Gap 12 (5-15); BUN 12 mg/dL (4-19); BUN/Creat Ratio 16.2 RATIO (10-20); Calcium,Total 9.3 mg/dL (7.6-11.0); Carbon Dioxide 24.4 mmol/L (21.0-32.0); Chloride 105 mmol/L (98-108); Cholesterol 142 mg/dL (<=200); Free T3 2.7 pg/mL (2.18-3.98); Glucose 89 mg/dL (70-99); Low Density Lipoprotein Calc. 91 mg/dL; Potassium 3.8 mmol/L (3.3-5.1); Triglycerides 52 mg/dL; Very Low Density Lipoprotein 10 mg/dL (5-40); Vitamin D,25 Hydroxy 37.5 ng/mL (30-100); cholesterol:hdl ratio screen 3.51
== END | disposition home or self-care (01) ==
LOC: LAB 11:45
PROVIDERS: PCP Student in an Organized Health Care Education/Training Program; Referring Provider Internal Medicine Endocrinology, Diabetes & Metabolism; Visit Provider Internal Medicine Endocrinology, Diabetes & Metabolism
DX: D50.9 Iron deficiency anemia, unspecified (principal); E06.3 Autoimmune thyroiditis; E55.9 Vitamin D deficiency, unspecified; E28.2 Polycystic ovarian syndrome; R73.03 Prediabetes
CPT/HCPCS: 36415; 80048; 80061; 82306; 83036; 84439; 84443; 84450; 84460; 84481; 85027